=== PATIENT | male | born 1970 | race Caucasian/White ===

== ENCOUNTER 2018-01-11 22:56 | Inpatient (IN) ==
[2018-01-11 23:42] LABS: Bilirubin,Urine Negative (Negative); Blood,Urine Negative (Negative); Clarity,Urine Clear (Clear); Color,Urine Yellow (Yellow); Glucose,Urine (UA) Normal (Normal); Ketones,Urine Trace mg/dL (Negative); Leukocyte Esterase,Urine Negative (Negative); Nitrite,Urine Negative (Negative); Protein,Urine Trace mg/dL (Neg-Trace); Specific Gravity,Urine 1.026 (1.010-1.025); Urobilinogen,Urine Normal (Normal)
[2018-01-11 23:46] LABS: Bacteria,Urine None Seen per hpf (None-Few); Hyaline Casts,Urine None Seen per lpf (None-Few); Squamous Epithelial Cell,Urine Many per lpf (None-Few); WBC,Urine 0-3 per hpf (0-3)
[2018-01-12 00:25] LABS: Basophils % 0.3 %; Eosinophils % 0.3 %; Hematocrit 45.1 % (37.5-50.1); Hemoglobin 15.5 g/dL (12.9-16.9); Immature Granulocytes % 0.5 % (0-4); Lymphocytes # 1.7 K/mcL (0.6-4.6); Mean Corpuscular HGB Conc 34.4 g/dL (31.6-35.5); Mean Corpuscular Hemoglobin 29.6 pg (28.0-33.3); Mean Corpuscular Volume 86.2 fL (83.0-100.0); Mean Platelet Volume 9.5 fL (9.4-12.4); Monocytes # 0.8 K/mcL (0.0-1.3); Neutrophils # 11.2 K/mcL (1.6-8.9); Platelet Count 216 K/mcL (140-400); Red Blood Count 5.23 M/mcL (4.19-5.50); Red Cell Distribution Width 12.4 % (11.5-14.5); Segmented Neutrophils % 80.9 %
[2018-01-12 00:48] LABS: Alanine Aminotransferase 12 Units/L (7-52); Albumin 4.8 g/dL (3.5-5.7); Albumin/Globulin Ratio 1.5 (1.1-2.2); Alkaline Phosphatase 62 Units/L (34-104); Aspartate Amino Transferase 14 Units/L (13-39); BUN/Creatinine Ratio 16 (6-26); Bilirubin,Indirect 0.6 mg/dL (0.0-1.2); Bilirubin,Total 0.6 mg/dL (0.3-1.0); Blood Urea Nitrogen 14 mg/dL (6-20); Carbon Dioxide 25 mEq/L (23-29); Chloride 103 mEq/L (98-107); Globulin 3.1 g/dL (2.4-3.5); Glucose 115 mg/dL (70-105); Lipase 9 Units/L (11-82); Osmolality,Calculated 281 (280-300); Sodium 135 mEq/L (136-145); Total Protein 7.9 g/dL (6.4-8.9); eGFR For African Americans > 60 (> 60); eGFR For Non-African Americans > 60 (> 60)
--- NOTE | 2018-01-12 02:01 | Emergency Department Note ---
Disposition Clinical Impression: Acute appendicitis Qualifiers: Acute appendicitis type: unspecified acute appendicitis type Qualified Code(s) : K35.80 - Unspecified acute appendicitis Disposition: Admitted As Inpatient Condition: Fair Time of Disposition: 04:39 Abdominal Pain HPI - General Chief Complaint: ED Abdominal Pain Stated Complaint: RLQ Pain Time Seen by Provider: 01/12/18 01:43 Source: patient Mode of arrival: ambulatory Limitations: no limitations Nursing Notes Reviewed: Yes Vital Signs Reviewed: Yes - History of Present Illness HPI Narrative: 47-year-old [facility] male presents to the emergency department with right lower quadrant pain said no previous abdominal surgeries. Said this pain started all of a sudden yesterday around 5 or 6 PM and is located only in the right lower quadrant nonradiating. He said it is a 3 out of 10 dull ache. Nonradiating. He did have a fever. And they were taking ibuprofen which did control it. Patient said the food has not been sounding that he did last either proximally 6 PM tonight just very little amount of soup. There has been no nausea or vomiting with this. He has never had pain like this before. Is having no testicular pain or any changes with urination or pain with urination. Patient otherwise having no complaints including no headaches, blurry vision, neck pain , back pain, fever, chills, nausea, vomiting, chest pain, shortness of breath, peritoneal and on the arms or legs, pain with urination, change in bowel movements. Pain Scale: 5 - Related Data Allergies Allergy/AdvReac Type Severity Reaction Status Date / Time No Known Allergies Allergy Verified 01/11/18 23:17 Review of Systems: 10 point review of systems done and negative unless otherwise stated in the history of present illness. All systems ED: reviewed and negative except as stated. Review of Systems: As Per HPI Abdominal Pain PMH - Past Medical History Medical history: Reports: hypertension Male Surgical History: Reports: no surgical history - Social History Smoking status: Never smoker Alcohol use: Reports: none Drug use: Reports: none Physical Exam - General Limitations: no limitations General appearance: alert, in no apparent distress - Head Head exam: atraumatic, normocephalic, normal inspection - Eye Eye exam: Present: normal appearance, PERRL, EOMI - ENT ENT exam: normal exam, normal oropharynx, mucous membranes moist - Neck Neck exam: Present: normal inspection, full ROM, trachea midline - Chest Chest inspection: Present: normal inspection, symmetric chest wall rise - Respiratory Respiratory exam: Present: normal lung sounds bilaterally - Cardiovascular Cardiovascular exam: Present: regular rate, normal rhythm, normal heart sounds - Abdominal Exam Abdominal exam: Present: soft, tenderness (Right lower quadrant), normal bowel sounds, tenderness at McBurney's Point. Absent: distention, guarding, rebound, rigidity, psoas sign, obturator sign, heel tap sign, Lynch's sign, Rovsing's sign Abdominal tenderness: Present: RLQ, mild - Extremities Exam Extremities exam: Present: normal inspection, full ROM - Expanded Lower Extremity Exam Neurovascular/Tendon exam: Present: normal capillary refill, pulse deficit. Absent: motor deficit, sensory deficit, tendon deficit - Back Exam Back exam: Present: normal inspection, full ROM. Absent: tenderness, CVA tenderness (R), CVA tenderness (L) - Neurological Exam Neurological exam: Present: alert, oriented X3 - Skin Skin exam: Present: warm, dry, intact, normal color Course Course Narrative: 47-year-old male presenting to the emergency department complaining of right lower quadrant pain. We will place an IV and do IV contrast CT of his abdomen and pelvis. Will also get basic labs including CBC and CMP and lipase. Patient is on a pain medication this time. Disposition pending results. Vital Signs Temperature 99.6 F 01/11/18 23:15 Pulse Rate 105 01/11/18 23:15 Respiratory Rate 20 01/11/18 23:15 Blood Pressure 139/87 01/11/18 23:15 O2 Sat by Pulse Oximetry 97 01/11/18 23:15 Temperature 99.2 F 01/12/18 04:02 Pulse Rate 110 01/12/18 04:02 Respiratory Rate 16 01/12/18 04:02 Blood Pressure 135/97 01/12/18 04:02 O2 Sat by Pulse Oximetry 96 01/12/18 04:02 Oxygen Delivery Oxygen Delivery Room Air Abdominal Pain - MDM Narrative Medical decision making narrative: 39-year-old male presenting to the emergency department with right lower quadrant pain CT abdomen and pelvis with contrast did show acute appendicitis with no perforation. Labs did show leukocytosis otherwise were normal. I spoke with the on-call surgeon, Dr. Kaiser who agreed to admit the patient to their service. Patient was not wanting pain medication while he is here. He did have one episode where he was nauseous so we did give him Zofran which did help with that. Patient otherwise having no complaints. He is admitted to the surgical service in stable condition. Abdomen/Pelvis CT 01/12/18 02:02 IMPRESSION: Acute appendicitis. No findings to suggest rupture. D/ / Lv Palumbo MD / Lv Palumbo MD Interpreting Provider: Lv Palumbo MD - Medical Records Medical records reviewed: Yes I reviewed the patient's medical records. - Lab Data Lab results reviewed: Yes I reviewed the patient's lab results. Result diagrams: 01/12/18 00:11 01/12/18 00:11 Lab Results 01/11/18 01/12/18 01/12/18 Range/Units 23:22 00:11 00:11 WBC 13.8 H (4.3-11.1) K/mcL RBC 5.23 (4.19-5.50) M/mcL Hgb 15.5 (12.9-16.9) g/dL Hct 45.1 (37.5-50.1) % MCV 86.2 (83.0-100.0) fL MCH 29.6 (28.0-33.3) pg MCHC 34.4 (31.6-35.5) g/dL RDW 12.4 (11.5-14.5) % Plt Count 216 (140-400) K/mcL MPV 9.5 (9.4-12.4) fL Immature Gran % 0.5 (0-4) % Seg Neutrophils % 80.9 % Lymphocytes % 12.0 % Monocytes % 6.0 % Eosinophils % 0.3 % Basophils % 0.3 % Neutrophils # 11.2 H (1.6-8.9) K/mcL Lymphocytes # 1.7 (0.6-4.6) K/mcL Monocytes # 0.8 (0.0-1.3) K/mcL Eosinophils # 0.0 (0.0-0.6) K/mcL Basophils # 0.0 (0.0-0.2) K/mcL Sodium 135 L (136-145) mEq/L Potassium 4.0 (3.5-5.1) mEq/L Chloride 103 (98-107) mEq/L Carbon Dioxide 25 (23-29) mEq/L BUN 14 (6-20) mg/dL Creatinine 0.86 (0.70-1.30) mg/dL Est GFR ( Amer) > 60 (> 60) Est GFR (Non-Af Amer) > 60 (> 60) BUN/Creatinine Ratio 16 (6-26) Glucose 115 H (70-105) mg/dL Calculated Osmolality 281 (280-300) Calcium 10.0 (8.6-10.3) mg/dL Total Bilirubin 0.6 (0.3-1.0) mg/dL Direct Bilirubin 0.0 (0.0-0.2) mg/dL Indirect Bilirubin 0.6 (0.0-1.2) mg/dL AST 14 (13-39) Units/L ALT 12 (7-52) Units/L Alkaline Phosphatase 62 (34-104) Units/L Serum Total Protein 7.9 (6.4-8.9) g/dL Albumin 4.8 (3.5-5.7) g/dL Globulin 3.1 (2.4-3.5) g/dL Albumin/Globulin Ratio 1.5 (1.1-2.2) Lipase 9 L (11-82) Units/L Urine Color Yellow (Yellow) Urine Clarity Clear (Clear) Urine pH 6.0 (5.0-8.0) pH Units Ur Specific [place] 1.026 H (1.010-1.025) Urine Protein Trace (Neg-Trace) mg/dL Urine Glucose (UA) Normal (Normal) mg/dL Urine Ketones Trace H (Negative) mg/dL Urine Blood Negative (Negative) Urine Nitrite Negative (Negative) Urine Bilirubin Negative (Negative) Urine Urobilinogen Normal (Normal) mg/dL Ur Leukocyte Esterase Negative (Negative) Urine Microscopic RBC 3-5 H (0-3) per hpf Urine Microscopic WBC 0-3 (0-3) per hpf Ur Squamous Epith Cells Many H (None-Few) per lpf Urine Bacteria None Seen (None-Few) per hpf Hyaline Casts None Seen (None-Few) per lpf - Radiology Data Radiology results reviewed: Yes I reviewed the patient's radiology results.
--- NOTE | 2018-01-12 02:20 | Emergency Department Note ---
START Narrative - START START: I examined this patient and my medical decision-making was reviewed with the Resident Physician. I agree with the documented findings, disposition and treatment plan as described except to the extent set forth below. 47 year old male present t [facility] eD who is [facility] and states that he is having RLQ pain that started a day or so ago and that is has associated with nausea and is tachycardiac at 105 and is concerning for appenidicits. We will do ABCT and labs and rule out appendicitis vs. other intraabdominal pathology such as kidney stones.
[2018-01-12] MEDS ORDERED: Ondansetron 4 MG/2 ML VIAL IVP ONE (04:17)
[2018-01-12] MEDS ORDERED: Piperacillin/Tazobactam 3.375 GM in Water for inj. (sterile) 20 ML 20 ML IVPB ONE (04:41)
[2018-01-12] MEDS ORDERED: D5% in Lactated Ringers 1,000 ML IVC SCH (04:45)
[2018-01-12] MEDS ORDERED: *HR* FentaNYL (PF) 100 MCG/2 ML VIAL IVP PRN ×2 (06:17→08:41)
[2018-01-12] MEDS ORDERED: D5% in 0.9% NACL 1,000 ML IVC SCH (06:30)
--- NOTE | 2018-01-12 07:30 | General Surg History&Physical ---
<Ana Vernon - Last Filed: 01/12/18 08:14> Date of Encounter: 01/12/18 Time of Encounter: 07:29 Assessment and Plan (1) Acute appendicitis Current Visit: Yes Status: Acute The assessment and plan as outlined above was discussed with the patient and/or family members who expressed understanding and agreement. All questions were answered. History, exam, and clinical course consistent with acute appendicitis. There is no evidence of perforation on his CT. We will plan for surgical intervention of laparoscopic appendectomy possible open in the next 24 to 48 hours. Recommendations, risks, benefits, and surgical procedure have been reviewed in-depth with the patient by this REAL ESTATE LISTING CONSULTANT and Dr. Kaiser with the patient and his , and the patient is agreeable to proceed. Signed consent is on the hard chart. Plan -surgical intervention as above -NPO except home diltiazem this a.m. prior to 0900 -chlorhexidine shower, now -incentive spirometry -EP CDs -G.I. and DVT prophylaxis -supportive care and discomfort management Qualifiers: Acute appendicitis type: with localized peritonitis Qualified Code(s): K35.3 - Acute appendicitis with localized peritonitis (2) Essential hypertension with goal blood pressure less than 130/80 Current Visit: Yes Status: Chronic The assessment and plan as outlined above was discussed with the patient and/or family members who expressed understanding and agreement. All questions were answered. Take home diltiazem now. PRN IV Lopressor thereafter for blood pressure greater than 150 or heart rate greater than 130. (3) Hyperlipidemia Current Visit: No Status: Chronic The assessment and plan as outlined above was discussed with the patient and/or family members who expressed understanding and agreement. All questions were answered. Qualifiers: Hyperlipidemia type: unspecified Qualified Code(s): E78.5 - Hyperlipidemia , unspecified (4) DVT prophylaxis Current Visit: Yes Status: Acute The assessment and plan as outlined above was discussed with the patient and/or family members who expressed understanding and agreement. All questions were answered. History of Present Illness Chief complaint: RLQ pain HPI: Mr. Guillen is a 47 year old male with a past medical history of controlled hypertension and hyperlipidemia. He denies any past surgical history. He denies tobacco use, alcohol use, or any illicit drugs. He denies any family history of colon cancers. 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 He denies chest pain or shortness of breath associated. He has never had any cardiovascular testing. He presented on 01/11/2018 following a three-day history of generalized malaise that started on Thursday. On Thursday he said he felt continued feelings of generally ill but was unable to pinpoint any sickness. On Thursday morning he was a weekend with right lower quadrant pain that he reported as sharp, 7 out of 10, and became stabbing pain if he moved. The right lower quadrant pain has not radiated or migrated. He reports that activity worsens the discomfort. Alleviating factors include Tylenol and lying still. He endorses fevers at home with the Tmax of 100F orally, chills, and one episode of vomiting this a.m. approximately 4 AM. He denies headache, dizziness, generalized weakness, syncope, near syncope, chest pain, shortness of breath, urinary signs or symptoms, changes in bowel habits, constipation, diarrhea, or evidence of bleeding in the stool. His hospital course thus far has included laboratory studies which note in increased white blood cell count at 13.8, a CT of the abdomen and pelvis with IV and no oral contrast reveals dilated and thickened appendix with adjacent inflammatory stranding, no focal fluid collection is visualized, this is consistent with acute appendicitis. He has been started on Zosyn 3.375 g and has received one dose. He has had nothing to eat or drink since arrival to the hospital. Past Med Surg Social Fam HX - Past Medical History Source: patient Medical history: hyperlipidemia, hypertension - Past Surgical History Surgical History: no surgical history - Social History Smoking Status: Never smoker Smokeless Tobacco Status: No Alcohol use: none Drug use: none Occupational status: employed Current living situation: Home - Independent Activity Level: Independent ambulation Medications and Allergies Diltiazem CD (24hr) [Cardizem CD] 180 mg PO DAILY 01/12/18 [History] 3 Allergy/AdvReac Type Severity Reaction Status Date / Time No Known Allergies Allergy Verified 01/12/18 08:22 Review of Systems All systems PM: reviewed and no additional remarkable complaints except as stated All systems PM: The remainder of the systems were reviewed and are negative General Surgery Exam Initial Vital Signs Temp Pulse Resp BP Pulse Ox 99.6 F 105 20 139/87 97 01/11/18 23:15 01/11/18 23:15 01/11/18 23:15 01/11/18 23:15 01/11/18 23:15 VITAL SIGNS: Reviewed. See [facility] GENERAL: In no apparent distress. HEENT: Normocephalic, atraumatic, pupils are equal and reactive, extraocular motions intact, oropharynx is pink and moist, there is no neck adenopathy or JVD noted. CHEST/RESPIRATORY: The thorax is free from signs of trauma. Lung sounds: clear to auscultation, normal respiratory effort CARDIAC: tachycardic and with regular rhythm. Normal S1 and S2, without murmurs , gallops, or rubs. VASCULAR: No Edema. 2+ peripheral pulses. ABDOMEN: soft, bowel sounds present but hypoactive, tender to light palpation in the right lower quadrant consistent with positive McBurney point sign. Tender in the left lower quadrant with deep palpation resulting in referred pain to the right consistent with peritoneal irritation. Negative obturator. MUSCULOSKELETAL: Good range of motion of all major joints. Extremities without clubbing, cyanosis or edema. NEUROLOGIC EXAM: Alert and oriented x 3. Speech normal. Follows commands. PSYCHIATRIC: Mood normal. SKIN: No rash or lesions. Results - Labs 01/12/18 00:11 01/12/18 00:11 Abnormal lab results WBC 13.8 K/mcL (4.3-11.1) H 01/12/18 00:11 Neutrophils # 11.2 K/mcL (1.6-8.9) H 01/12/18 00:11 Sodium 135 mEq/L (136-145) L 01/12/18 00:11 Glucose 115 mg/dL (70-105) H 01/12/18 00:11 POC Glucose 140 (58-89) H 01/12/18 05:01 Lipase 9 Units/L (11-82) L 01/12/18 00:11 Ur Specific [place] 1.026 (1.010-1.025) H 01/11/18 23:22 Urine Ketones Trace mg/dL (Negative) H 01/11/18 23:22 Urine Microscopic RBC 3-5 per hpf (0-3) H 01/11/18 23:22 Ur Squamous Epith Cells Many per lpf (None-Few) H 01/11/18 23:22 All other labs normal. - Imaging CT scan - abdomen: report reviewed CT scan - pelvis: report reviewed <Kin Kaiser - Last Filed: 01/12/18 09:52> Date of Encounter: 01/12/18 History of Present Illness HPI: Mr. Guillen is a 47 year old male Review of Systems All systems PM: The remainder of the systems were reviewed and are negative General Surgery Exam Initial Vital Signs Temp Pulse Resp BP Pulse Ox 99.6 F 105 20 139/87 97 01/11/18 23:15 01/11/18 23:15 01/11/18 23:15 01/11/18 23:15 01/11/18 23:15 Results - Labs 01/12/18 00:11 01/12/18 00:11 Abnormal lab results WBC 13.8 K/mcL (4.3-11.1) H 01/12/18 00:11 Neutrophils # 11.2 K/mcL (1.6-8.9) H 01/12/18 00:11 Sodium 135 mEq/L (136-145) L 01/12/18 00:11 Glucose 115 mg/dL (70-105) H 01/12/18 00:11 POC Glucose 124 (58-89) H 01/12/18 08:19 Lipase 9 Units/L (11-82) L 01/12/18 00:11 Ur Specific [place] 1.026 (1.010-1.025) H 01/11/18 23:22 Urine Ketones Trace mg/dL (Negative) H 01/11/18 23:22 Urine Microscopic RBC 3-5 per hpf (0-3) H 01/11/18 23:22 Ur Squamous Epith Cells Many per lpf (None-Few) H 01/11/18 23:22 All other labs normal. - Attending Attestation I have personally seen and examined the patient. I have reviewed pertinent labs , imaging, progress notes, including this one. I agree with the above assessment and plan and wish to include the following... 47M with acute appendicitis; plan for OR today; abx, IVF, NPO until then
[2018-01-12] MEDS ORDERED: Naloxone 0.4 MG/ML INJ IVP PRN ×3 (08:18→21:24)
[2018-01-12] MEDS ORDERED: OXYCODONE Oral CONC 10 MG/0.5 ML ORAL.SYG SL PRN ×2 (08:18→08:28)
[2018-01-12] MEDS ORDERED: Ondansetron 4 MG/2 ML VIAL IVP PRN ×3 (08:18→21:24)
[2018-01-12] MEDS ORDERED: Ketorolac 15 MG/ML VIAL IVP PRN ×2 (08:18→08:41)
[2018-01-12] MEDS ORDERED: *HR* Metoprolol 5 MG/5 ML VIAL IVP PRN ×3 (08:18→21:24)
[2018-01-12] MEDS ORDERED: Acetaminophen IV 1,000 MG/100 ML INFUS..BTL IVPB ONE ×2 (08:18→08:28)
[2018-01-12] MEDS ORDERED: *HR* Promethazine 25 MG/ML VIAL IVP PRN ×5 (08:18→21:24)
[2018-01-12] MEDS ORDERED: Diltiazem CD (24hr) 180 MG CAPSULE PO STA (08:28)
[2018-01-12] MEDS ORDERED: Ringers Solution, Lactated 1,000 ML IVC SCH (08:30)
[2018-01-12] MEDS ORDERED: Pantoprazole 40 MG VIAL IVP SCH ×2 (09:00)
[2018-01-12] MEDS: Ringers Solution, Lactated 1,000 ML IVC SCH ×2 (09:49→22:12)
--- NOTE | 2018-01-12 11:32 | Discharge Summary ---
Date of Encounter: 01/12/18 Time of Encounter: 11:43 - Discharge Diagnosis (1) Acute appendicitis Priority: Primary Status: Acute Qualifiers: Acute appendicitis type: with localized peritonitis Qualified Code(s): K35.3 - Acute appendicitis with localized peritonitis (2) Essential hypertension with goal blood pressure less than 130/80 Priority: Secondary Status: Chronic (3) Hyperlipidemia Priority: Secondary Status: Chronic Qualifiers: Hyperlipidemia type: unspecified Qualified Code(s): E78.5 - Hyperlipidemia , unspecified (4) DVT prophylaxis Priority: Secondary Status: Acute General Surgery Exam Initial Vital Signs Temp Pulse Resp BP Pulse Ox 99.6 F 105 20 139/87 97 01/11/18 23:15 01/11/18 23:15 01/11/18 23:15 01/11/18 23:15 01/11/18 23:15 - Hospital Course Hospital course: Mr. Guillen is a 47 year old male who presented on 01/11/2018 following a three- day history of generalized malaise, right lower quadrant pain, fever, and one episode of vomiting. His assessment, exam, and hospital course were consistent with acute appendicitis. He was started on IV Zosyn and taken to the operating room on 01/13/2108 where he underwent an uncomplicated laparoscopic appendectomy. He is ambulating and voiding without difficulty, vital signs are stable, tolerating liquids without nausea or vomiting, and his abdominal discomfort is well controlled. We will begin discharge planning to home with a follow-up in the office in approximately 2 weeks. - Time Spent with Patient Total time spent providing and/or coordinating discharge services: - Discharge Medications Prescriptions: OxyCODONE/APAP 5/325 [Percocet 5/325 MG] 1 each PO Q6HR PRN 7 Days #28 tablet PRN Reason: Pain Docusate Sodium [Colace] 100 mg PO BID PRN #30 capsule PRN Reason: Constipation Ibuprofen [Motrin] 600 mg PO TID PRN #30 tab PRN Reason: Mild Pain Home Medications: Diltiazem CD (24hr) [Cardizem CD] 180 mg PO DAILY 01/12/18 [History] Docusate Sodium [Colace] 100 mg PO BID PRN #30 capsule 01/12/18 [Rx] Ibuprofen [Motrin] 600 mg PO TID PRN #30 tab 01/12/18 [Rx] OxyCODONE/APAP 5/325 [Percocet 5/325 MG] 1 each PO Q6HR PRN 7 Days #28 tablet [Rx] Allergies/Adverse Reactions: 3 Allergy/AdvReac Type Severity Reaction Status Date / Time No Known Allergies Allergy Verified 01/12/18 08:22 Date of admission: 01/12/18 04:17 Primary care physician: Odilia Carney MD Discharging clinician: Kin Kaiser (Primitivo Vernon) Anticipated date of discharge: 01/12/18 Labs on day of discharge: Labs from last 24 hours 01/12/18 01/12/18 08:19 05:01 POC Glucose 124 H 140 H - Patient Status Disposition: Home, Self-Care Condition: Fair Functional capacity at discharge: independent ambulation Overall status at discharge: patient is progressing back to baseline - Discharge Instructions Instructions: Laparoscopic Appendectomy (DC) Follow Up With: Odilia Carney MD [Primary Care Provider] - Ana Vernon CNP [Advanced Practice Nurse] - 01/26/18 1:40 pm Additional Instructions: General Surgical Discharge Instructions 1. No pushing, pulling, or lifting greater than 15 lbs for 4 weeks (depending upon procedure). 2. You may shower beginning today, but no tub baths, soaking, or swimming for 2 weeks. 3. You may resume driving when you are off narcotics and are safe to react in a car. 4. Take ibuprofen every 8 hours for discomfort. If this does not relieve discomfort, you may take the as needed Percocet. Take narcotics as directed. Do not take more narcotics then directed and do not share your narcotics with any other person. Do not drink alcohol while on narcotics. 5. Take stool softeners (Colace) or a water based laxative (Miralax) while taking narcotics. You may hold for loose stools. 6. Report any fevers greater than 100.5F, increase abdominal discomfort, drainage that looks like pus, increased redness or pain at the surgical site, or any vomiting. 7. Report any pain in the calves, shortness of breath, or rapid heartbeat. 8. Follow-up in the office as directed. 9. If you were prescribed antibiotics, do not stop them without talking to your provider. - Diet and Activity Activity: increase activity as tolerated Diet: advance to your usual diet
[2018-01-12] MEDS ORDERED: Piperacillin/Tazobactam 3.375 GM in 0.9 % Sodium Chloride Mini Bag 100 ML IVPB SCH (12:00)
--- NOTE | 2018-01-12 14:05 | Anesthesia Evaluation PreOp ---
Date of Encounter: 01/12/18 Time of Encounter: 14:02 - Past History Planned Operation: Lap. Appy Cardiac History: HTN, Hyperlipidemia Pulmonary History: Denies Any Significant HX CONTINUITY COORDINATOR History: Denies Any Significant HX Other Medical History: Denies Any Significant HX Anesthesia History: No Prior Anesthetic Complications, Past Anesthesia (Dental Sx) Alcohol Use: none Drug use: none Medications and Allergies Diltiazem CD (24hr) [Cardizem CD] 180 mg PO DAILY 01/12/18 [History] Docusate Sodium [Colace] 100 mg PO BID PRN #30 capsule 01/12/18 [Rx] Ibuprofen [Motrin] 600 mg PO TID PRN #30 tab 01/12/18 [Rx] OxyCODONE/APAP 5/325 [Percocet 5/325 MG] 1 each PO Q6HR PRN 7 Days #28 tablet [Rx] 3 Allergy/AdvReac Type Severity Reaction Status Date / Time No Known Allergies Allergy Verified 01/12/18 08:22 - Meds/Allergy Pre-op Review Medications Reviewed: Yes Allergies Reviewed: Yes Beta Blockers on Current Med List: No Anesthesia Results - Labs 01/12/18 00:11 01/12/18 00:11 Anesthesia Exam Vital Signs/O2 Sat, Most Current Temp Pulse Resp BP Pulse Ox 97.6 F 98 16 130/90 98 01/12/18 06:10 01/12/18 06:10 01/12/18 06:10 01/12/18 09:50 01/12/18 08:00 NPO (# of Hours): > 8 Hrs Pain Scale: 0 Pain Scale Used: Numeric (1 - 10) - HEENT Pupil (Motor): Pupils equal, EOMI Mallampati: II Teeth: Normal Oral Opening: Greater than 3 - CONTINUITY COORDINATOR LOC: Oriented CONTINUITY COORDINATOR Motor: Normal RUE, Normal LUE, Normal RLE, Normal LLE, Normal Face CONTINUITY COORDINATOR Sensory: Normal: RUE, LUE, RLE, LLE, Face - Cardiac Rhythm: Regular Murmur: None JVD: No Carotid Bruit: No - Pulmonary Breath Sounds: bilateral Clear Respiratory Effort: Symmetrical Anesthesia Assess/Plan ASA Score: 2 Modified Félix Scale for Level of Consciousness: Cooperative, oriented, and tranquil Anesthetic Plan: General Autologous Blood: Yes Monitoring Plan: Standard Monitors Recovery Plan: PACU
[2018-01-12] MEDS: Piperacillin/Tazobactam 3.375 GM in 0.9 % Sodium Chloride Mini Bag 100 ML IVPB SCH ×2 (14:11→22:12)
[2018-01-12] MEDS ORDERED: *HR* FentaNYL (PF) 100 MCG/2 ML VIAL ONE ×3 (15:50→18:05)
[2018-01-12] MEDS ORDERED: *HR* Propofol 200 MG/20 ML VIAL IVP ONE (15:50)
[2018-01-12] MEDS ORDERED: *HR* Midazolam HCl 2 MG/2 ML VIAL ONE (15:50)
[2018-01-12] MEDS ORDERED: Lidocaine -MPF 2% 2 ML VIAL ONE (15:52)
[2018-01-12] MEDS ORDERED: *HR* Rocuronium Bromide 50 MG/5 ML VIAL ONE ×2 (15:52→18:56)
[2018-01-12] MEDS ORDERED: Dexamethasone 4 MG/ML VIAL ONE (16:47)
[2018-01-12] MEDS ORDERED: Neostigmine Methylsulfate 3 MG/3 ML SYRINGE ONE (16:47)
[2018-01-12] MEDS ORDERED: Ondansetron 4 MG/2 ML VIAL ONE (16:47)
[2018-01-12] MEDS ORDERED: MORPHINE SUL Oral CONC 10 MG/0.5 ML ORAL.SYG SL PRN (16:59)
[2018-01-12] MEDS ORDERED: *HR* OxyCODONE Immed Rel 5 MG TABLET PO PRN (16:59)
[2018-01-12] MEDS ORDERED: Bupivacaine/Clonidine Syringe 1 EACH SYRINGE ONE (18:39)
--- NOTE | 2018-01-12 20:22 | Anesthesia Procedures ---
Date of Encounter: 01/12/18 Time of Encounter: 19:49 Procedures: Anesthesia - Nerve Block Procedure Date: 01/12/18 Time: 19:49 Surgical Procedure: lap appy converted to right delicia Checklist: Correct Patient Identifier, Correct procedure, History checked Blood Thinner: No Monitor Applied: BP, Pulse Oximetry Indication: Post Op Analgesia Block Type: Other (subcostal, TAP block ) Catheter placed: No Sterile Technique: Yes Ultrasound used: Yes Anatomy identified: Yes Visual spread of Local: Yes Neuro Stimulation: No Blood on Needle Aspiration: No Smooth Injection of Local: Yes Pain with Injection of Local: No Prep: Chlorhexadine Local: 0.25% Bupivicaine w/Clonidine 20 mcg/cc (40ml block solution..diluted with NS 0.9% 40ml, 80ml total given ) Volume (cc): 40 Number of Attempts: 1 Complications: None/effective block Vitals: 20ml per site, bilateral subcostal, and bilateral TAP.
[2018-01-12] MEDS: *HR* Labetalol 100 MG/20 ML MDV IVP PRN ×4 (20:26→20:42)
--- NOTE | 2018-01-12 20:53 | Anesthesia Evaluation Post Op ---
Date of Encounter: 01/12/18 Time of Encounter: 20:52 - Vital Signs Vital Signs: Vital Signs/O2 Sat, Most Current Temp Pulse Resp BP Pulse Ox 98.5 F 98 16 159/102 92 01/12/18 20:49 01/12/18 20:49 01/12/18 20:49 01/12/18 20:49 01/12/18 20:49 - Lungs Lungs: Clear Ascult./Percussion - Airway Airway: Non-obstructed - Cardiovascular Regular Rate - Mental Status Mental Status: Alert & Oriented, Answers Appropriately - Pain Pain Scale: 0 Pain Scale used: Numeric (1 - 10) - Nausea Vomiting Nausea Vomiting: Not Present - Hydration Hydration: NPO - Discharge PostOp Status: Transfer Patient to floor
[2018-01-12] MEDS: *HR* Heparin 5,000 UNIT/ML VIAL SQ SCH (22:58)
[2018-01-12] MEDS: *HR* Morphine 30 MG/ 30 ML PCA IVC PRN (23:34)
[2018-01-13] MEDS: Ringers Solution, Lactated 1,000 ML IVC SCH ×3 (03:16→11:36)
[2018-01-13] MEDS: Piperacillin/Tazobactam 3.375 GM in 0.9 % Sodium Chloride Mini Bag 100 ML IVPB SCH ×2 (03:26→11:36)
[2018-01-13] MEDS: *HR* Heparin 5,000 UNIT/ML VIAL SQ SCH ×3 (05:57→21:54)
[2018-01-13] MEDS: Pantoprazole 40 MG VIAL IVP SCH (07:50)
--- NOTE | 2018-01-13 09:21 | General Surgery Progress Note ---
<Baljit Keith - Last Filed: 01/13/18 11:58> Date of Encounter: 01/13/18 Time of Encounter: 07:45 - Assessment and Plan (1) Status post right hemicolectomy Current Visit: Yes Status: Acute POD#1 s/p lap appy converted to right hemicolectomy. Plan: -Pain control with PRINTING MACHINE OPERATOR and fentanyl patch. -NG to suction -Discontinue the Zosyn. -OOTB /ambulate. -IS usage -Await return of bowel function. -G.I. and DVT prophylaxis -Continue to monitor the patient. (2) Acute appendicitis Current Visit: Yes Status: Acute History, exam, and clinical course consistent with acute appendicitis. There is no evidence of perforation on his CT. See plan above. Qualifiers: Acute appendicitis type: with localized peritonitis Qualified Code(s): K35.3 - Acute appendicitis with localized peritonitis (3) Essential hypertension with goal blood pressure less than 130/80 Current Visit: Yes Status: Chronic Blood pressure is controlled at this time. PRN IV Lopressor for blood pressure greater than 150 or heart rate greater than 130. (4) Hyperlipidemia Current Visit: No Status: Chronic Qualifiers: Hyperlipidemia type: unspecified Qualified Code(s): E78.5 - Hyperlipidemia , unspecified (5) DVT prophylaxis Current Visit: Yes Status: Acute Subjective Patient reports: still having pain, no flatus, afebrile Narrative: The patient was seen and evaluate at bedside this morning. The patient was alert, awake, afebrile, and appears in no acute distress. The patient admits abdominal pain and tenderness near his surgical incision. He states that it is difficult to take in a deep breath because of the pain. He admits he has not been using the incentive spirometry as recommended due to the pain but will try to do it today. The patient admits she gets anxious when he is in the hospital. He denies any fevers, headaches, near syncope, chest pain, shortness of breath, difficulty breathing, diarrhea, constipation, urinary symptoms, blood in his urine, numbness and tingling, and any weaknesses. The patient has no other concerns at this time. Objective Vital Signs - Last 8 Hours Temp Pulse Resp BP Pulse Ox 01/13/18 08:27 99.3 F 107 14 121/84 92 01/13/18 07:49 92 01/13/18 05:56 99.6 F 108 16 141/84 94 01/13/18 03:44 99.7 F H 112 16 114/74 93 Intake and Output 01/12/18 01/13/18 01/13/18 23:59 07:59 15:59 Intake Total 0 / 0 Output Total 75 / 75 0 / 0 Balance -75 / -75 0 / 0 Intake: Oral 0 / 0 Output: Urine 0 / 0 0 / 0 Estimated Blood Loss 75 / 75 Gastric Drainage 0 / 0 Other: Meal NPO for breakfast Blood Glucose* 131 - General physical appearance well developed, well nourished, no distress - Eyes PERRL, normal ocular movement - ENT normal mucosa - Neck Neck exam: trachea midline - Respiratory normal expansion, normal respiratory effort, clear to auscultation - Cardiovascular Cardiovascular exam: Present: tachycardia, no murmurs/rubs/gallops - Abdomen Abdomen: Present: soft, tender (Appropriate post op tenderness near his surgical incision. No tenderness in the right lower quadrant. negative McBurney point sign.). Absent: bowel sounds present, distended, rebound, rigid - Incision Incision: Present: clean and dry, intact. Absent: draining, purulent - Integumentary no rash - Neurologic CN 2-12 grossly intact - Psychiatric oriented to time, oriented to person, oriented to place - Labs 01/12/18 00:11 01/12/18 00:11 - VTE Documentation of Mechanical Device: Intermittent pneumatic compression device Consult Discharge Plan - Plan Instructions: Laparoscopic Appendectomy (DC) Additional Instructions: General Surgical Discharge Instructions 1. No pushing, pulling, or lifting greater than 15 lbs for 4 weeks (depending upon procedure). 2. You may shower beginning today, but no tub baths, soaking, or swimming for 2 weeks. 3. You may resume driving when you are off narcotics and are safe to react in a car. 4. Take ibuprofen every 8 hours for discomfort. If this does not relieve discomfort, you may take the as needed Percocet. Take narcotics as directed. Do not take more narcotics then directed and do not share your narcotics with any other person. Do not drink alcohol while on narcotics. 5. Take stool softeners (Colace) or a water based laxative (Miralax) while taking narcotics. You may hold for loose stools. 6. Report any fevers greater than 100.5F, increase abdominal discomfort, drainage that looks like pus, increased redness or pain at the surgical site, or any vomiting. 7. Report any pain in the calves, shortness of breath, or rapid heartbeat. 8. Follow-up in the office as directed. 9. If you were prescribed antibiotics, do not stop them without talking to your provider. Referrals: Odilia Carney MD [Primary Care Provider] - Ana Vernon CNP [Advanced Practice Nurse] - 01/26/18 1:40 pm Prescriptions: OxyCODONE/APAP 5/325 [Percocet 5/325 MG] 1 each PO Q6HR PRN 7 Days #28 tablet PRN Reason: Pain Docusate Sodium [Colace] 100 mg PO BID PRN #30 capsule PRN Reason: Constipation Ibuprofen [Motrin] 600 mg PO TID PRN #30 tab PRN Reason: Mild Pain <Kin Kaiser - Last Filed: 01/13/18 12:21> Date of Encounter: 01/13/18 Objective Vital Signs - Last 8 Hours Temp Pulse Resp BP Pulse Ox 01/13/18 11:30 98.7 F 109 15 135/87 93 01/13/18 08:27 99.3 F 107 14 121/84 92 01/13/18 07:49 92 01/13/18 05:56 99.6 F 108 16 141/84 94 Intake and Output 01/12/18 01/13/18 01/13/18 23:59 07:59 15:59 Intake Total 100 / 100 1000 / 1000 Output Total 75 / 75 0 / 0 450 / 450 Balance -75 / -75 100 / 100 550 / 550 Intake: IV Fluids 100 / 100 1000 / 1000 Lactated Ringers 1,000 ML @ 125 1000 / 1000 mls/hr IVC .Q8H [facility] Rx#: [id number] Zosyn 3.375 GM In 0.9 % Sodium 100 / 100 Chloride (Mini-Bag +) 100 ML @ 25 mls/hr IVPB Q8H BETH Rx#: [id number] Oral 0 / 0 Output: Urine 0 / 0 0 / 0 Estimated Blood Loss 75 / 75 Catheter 450 / 450 Gastric Drainage 0 / 0 Other: Meal NPO for breakfast Blood Glucose* 131 120 - Labs 01/12/18 00:11 01/12/18 00:11 - Attending Attestation I have personally seen and examined the patient. I have reviewed pertinent labs , imaging, progress notes, including this one. I agree with the above assessment and plan and wish to include the following... 47M POD #1 s/p lap appy 2/2 acute appendicitis converted to lap r delicia 2/2 intraoperative finding of a cystic/mucinous lesion along the R colon; pain: cont PRINTING MACHINE OPERATOR cardiac; monitor BP/HR pulm: IS usage 10 breaths/hr while awake GI: keep NPO; if no return of bowel function by 01/15, then will begin TPN : orellana catheter inserted 2/2 urinary retention; cont to monitor UOP; will likely start flomax once Gi tract begins functioning ID: d/c abx heme: SQH TID endo: glucose <150 is the goal MSK: activity as tolerated; OOBTC FEN: change to MIVF, send for labs, replete PRN; cont NPO
[2018-01-13] MEDS ORDERED: *HR* FentaNYL PATCH 50 MCG PATCH TD SCH (12:00)
[2018-01-13] MEDS: *HR* Morphine 30 MG/ 30 ML PCA IVC PRN (13:23)
--- NOTE | 2018-01-13 13:23 | Operative Note ---
Date of procedure: 01/12/18 Pre-op diagnosis: acute appendicitis Post-op diagnosis: other (acute appendicitis, incidental finding of cystic/ mucinous lesion on right colon) Procedure: laparoscopic right hemicolectomy Complications: none Anesthesia: GETA Local Anesthetics: 0.5% Sensorcaine HCL SubQ (cc) Surgeon: Kin Kaiser Was there an physician assistant primary care present: Yes Vest Finisher: Gloria Hodges Estimated blood loss (cc): 75 Specimen: right colon, incle appendix; concerning area surrounding by black suture Condition: stable Disposition: PACU Procedure in Detail: The patient was brought into the operating room suite. The patient was placed in the supine position. Mechanical DVT prophylaxis was initiated. The patient underwent smooth induction of general endotracheal anesthesia. The patient was prepped and draped in the usual fashion. Preoperative antibiotics were given. A timeout was held identifying the correct patient, pathology, and procedure. Everyone was in agreement and we began a procedure. Incision to Mesenteric Window I started bycreating a supraumbilical incision and via open Barrientos technique entered into the abdomen. I then used a Vicryl suture on a UR 6 needle in a [id number] fashion to reapproximate but not close the fascia. I then inserted the 10 trocar followed by the camera to visualize the intraabdominal cavity. I then created a 5 mm incision suprapubically and inserted the 5 mm trocar under direct visualization. Roughly 1 handbreadth lateral to the umbilical incision I created another 5 mm incision and inserted another 5 mm trocar under direct visualization. I then inserted the nontraumatic instruments into the 5 mm ports and began the procedure. I was able to identify the tinea coli coalescing at the base of the cecum to identify the appendix. The appendix was severely inflammed and adhered to the cecum. These two structures were significantly adhered to the abdominal wall. Upon further inspection, the appendix was inflammed to the base of the cecum and the entire cecum was significantly inflammed. I was unable to fully expose the appendix and, if I were able to, I was concerned about the staple that would go across the appendix or the cecum. In addition to that, distal along the ascending colon, was what appeared to be a cysitc/mucinous mass. My concern was that this patient may have a bigger concern than acute appendicitis that I found incidentally.. I stepped out of the operating room suite to discuss with the family. The decision was made to take out the entire R colon. The family was in agreement. Dissection to Specimen Retrieval I used the electrocautery and dissected, beginning laterally, along the white line of toldt. Once I reached the hepatic flexure, I continued proximally along the transverse colon. I then had to go back towards the terminal ileum to dissect it from the abdominla wall. I was able to visualize the duodenum. In addition, I was able to retrace the R colon to the midline. I then extended the umbilical incision to retrieve the specimen. It should be stated that I had to extend the incision quite a bit to completely retrieve the right colon due to the inflammatory mass from the appendix; I then mobilized a little more of the transverse colon before finding a point after the right branch of the middle colic vessel. I elected to staple across at this point. I also stapled across proximally at the terminal ileum. Should be stated that I used the ERICK stapler, blue load to staple across the bowel. I then used the ligasure/Impact machine to ligate the mesentery until the specimen was completed resected and free. I incorporated a lot of mesentery to ensure I was able to get adequate lymph nodes. I did experience bleeding from the mesenteric vessels, but this was controlled with the ligasure. I then used the Suzanne clamps to grasp the edge of the staple line and the rubin scissors to cut off the edge and enter into the lumen both proximally and distally and used one fire of the ERICK blue load stapler to create the [id number] anastamosis. I then used the TA stapler to staple the bowel closed. I used a 3-0 vicryl as a crotch stitch. Closure I then used a looped PDS suture and, in a running fashion, closed the fascia. I then used 3-0 vicryl in an interrupted fashion to close the deep dermal layer. I then closed the skin using a 4-0 monocryl in a running subcuticular fashion. It should be stated that I did use 0.5% Marcaine as a local anesthetic. The patient tolerated the procedure well and did go back to PACU in stable condition.
[2018-01-13 13:36] LABS: BUN/Creatinine Ratio 24 (6-26); Blood Urea Nitrogen 18 mg/dL (6-20); Carbon Dioxide 27 mEq/L (23-29); Chloride 102 mEq/L (98-107); Glucose 114 mg/dL (70-105); Magnesium 1.8 mg/dL (1.6-2.6); Osmolality,Calculated 283 (280-300); Phosphorous 2.9 mg/dL (2.7-4.5); Sodium 135 mEq/L (136-145); eGFR For African Americans > 60 (> 60); eGFR For Non-African Americans > 60 (> 60)
[2018-01-13] MEDS ORDERED: Chloraseptic Spray 177 ML BOTTLE MM PRN (14:14)
[2018-01-13] MEDS: D5% in 0.45% NACL w KCl 20 MEQ/1,000 ML MLS IVC SCH (15:11)
[2018-01-14] MEDS: D5% in 0.45% NACL w KCl 20 MEQ/1,000 ML MLS IVC SCH (01:21)
[2018-01-14] MEDS: *HR* Heparin 5,000 UNIT/ML VIAL SQ SCH ×3 (05:24→21:43)
[2018-01-14] MEDS: Pantoprazole 40 MG VIAL IVP SCH (07:25)
[2018-01-14] MEDS ORDERED: Acetaminophen IV 1,000 MG/100 ML INFUS..BTL IVPB ONE (08:14)
--- NOTE | 2018-01-14 09:11 | General Surgery Progress Note ---
<Baljit Keith - Last Filed: 01/14/18 11:13> Date of Encounter: 01/14/18 Time of Encounter: 07:45 - Assessment and Plan (1) Status post right hemicolectomy Current Visit: Yes Status: Acute POD#2 s/p lap appy converted to right hemicolectomy. Plan: -Pain control with ASSISTANT PROFESSOR OF DRAMA and fentanyl patch. -Patient had a temperature of 100.1 today. Ordered IV Tylenol for fever and repeat temperature was 98.1. To further evaluate, chest xray was ordered and report states linear opacities of the bilateral lung bases are likely atelectasis. Small bilateral pleural effusions. Urine analysis is still pending. Will discontinue the Orellana catheter once UA is collected. CBC show elevated white count at 12.9 but is trending down from 13.8 on 01/12/18 and sodium at 133. Surgical incision is clean, dry and intact with Mild erythema that blanches. -Will discontinue the D5 1/2NS and start patient on D5NS at 75 mls/hr. -NG to suction but will clamp NG tube and check residuals in 4 hours. If it is less than 300 cc, plan to discontinued the NG tube. Will replete phosphate with sodium phosphate. -OOTB /ambulate. -Encourage IS usage at least 10 times per hour. -Await return of bowel function. -G.I. and DVT prophylaxis -Continue to monitor the patient. (2) Acute appendicitis Current Visit: Yes Status: Acute History, exam, and clinical course consistent with acute appendicitis. There is no evidence of perforation on his CT. See plan above. Qualifiers: Acute appendicitis type: with localized peritonitis Qualified Code(s): K35.3 - Acute appendicitis with localized peritonitis (3) Essential hypertension with goal blood pressure less than 130/80 Current Visit: Yes Status: Chronic Blood pressure is controlled at this time. PRN IV Lopressor for blood pressure greater than 150 or heart rate greater than 130. (4) Hyperlipidemia Current Visit: No Status: Chronic Qualifiers: Hyperlipidemia type: unspecified Qualified Code(s): E78.5 - Hyperlipidemia , unspecified (5) DVT prophylaxis Current Visit: Yes Status: Acute Subjective Patient reports: no new complaints, pain is less, no flatus, no bowel movement Narrative: The patient was seen and evaluated at bedside this morning. The patient was awake, alert, interactive, and had a low-grade temperature of 100.1. Patient states that his pain is less today. He admits he still has tenderness near his surgical incisions. He states that he still "feels sore in my belly and lungs. " The patient admits he has been trying to use the incentive spirometry as recommended. However, he states he uses it every 15 minutes. The patient denies any flatus, diaphoresis, and chills. The patient also denies any headaches, vision changes, new syncope, chest pain, shortness of breath, difficulty breathing, urinary symptoms, numbness and tingling, and any weaknesses. The patient has no other concerns at this time. Objective Vital Signs - Last 8 Hours Temp Pulse Resp BP Pulse Ox 01/14/18 07:31 99.1 F 114 16 142/94 91 01/14/18 05:31 100.1 F H 112 17 130/93 91 01/14/18 02:45 99.7 F H 117 17 154/93 91 Intake and Output 01/13/18 01/14/18 01/14/18 23:59 07:59 15:59 Intake Total 0 / 0 1000 / 1000 Output Total 1250 / 1250 450 / 450 Balance -1250 / -1250 550 / 550 Intake: IV Fluids 1000 / 1000 KCl 20mEq IN D5%-0.45 NACL 20 1000 / 1000 meq In 1,000 ml @ 100 mls/hr IVC .Q10H [facility] Rx#:[id number] Oral 0 / 0 0 / 0 Output: Catheter 1000 / 1000 450 / 450 Gastric Drainage 250 / 250 0 / 0 Other: Meal NPO DINNER Blood Glucose* 111 111 - General physical appearance well developed, well nourished, no distress - Eyes PERRL, normal ocular movement - ENT normal mucosa - Neck Neck exam: trachea midline - Respiratory normal expansion, normal respiratory effort - Cardiovascular Cardiovascular exam: Present: tachycardia, no murmurs/rubs/gallops - Abdomen Abdomen: Present: bowel sounds present, soft, tender (Appropriate post op tenderness near his surgical incision. Some tenderness in the right lower quadrant. negative McBurney point sign.) Hernia: none - Incision Incision: Present: clean and dry, intact, erythema. Absent: draining, purulent - Integumentary no rash - Neurologic CN 2-12 grossly intact - Psychiatric oriented to time, oriented to person, oriented to place - Labs 01/14/18 10:18 01/14/18 06:39 Diabetes panel 01/13/18 Range/Units 12:17 Sodium 135 L (136-145) mEq/L Potassium 4.0 (3.5-5.1) mEq/L Chloride 102 (98-107) mEq/L Carbon Dioxide 27 (23-29) mEq/L BUN 18 (6-20) mg/dL Creatinine 0.74 (0.70-1.30) mg/dL Glucose 114 H (70-105) mg/dL Calcium 9.0 (8.6-10.3) mg/dL Calcium panel 01/13/18 Range/Units 12:17 Calcium 9.0 (8.6-10.3) mg/dL Phosphorus 2.9 (2.7-4.5) mg/dL Pituitary panel 01/13/18 Range/Units 12:17 Sodium 135 L (136-145) mEq/L Potassium 4.0 (3.5-5.1) mEq/L Chloride 102 (98-107) mEq/L Carbon Dioxide 27 (23-29) mEq/L BUN 18 (6-20) mg/dL Creatinine 0.74 (0.70-1.30) mg/dL Glucose 114 H (70-105) mg/dL Calcium 9.0 (8.6-10.3) mg/dL Adrenal panel 01/13/18 Range/Units 12:17 Sodium 135 L (136-145) mEq/L Potassium 4.0 (3.5-5.1) mEq/L Chloride 102 (98-107) mEq/L Carbon Dioxide 27 (23-29) mEq/L BUN 18 (6-20) mg/dL Creatinine 0.74 (0.70-1.30) mg/dL Glucose 114 H (70-105) mg/dL Calcium 9.0 (8.6-10.3) mg/dL - VTE Documentation of Mechanical Device: Intermittent pneumatic compression device Consult Discharge Plan - Plan Instructions: Laparoscopic Appendectomy (DC) Additional Instructions: General Surgical Discharge Instructions 1. No pushing, pulling, or lifting greater than 15 lbs for 4 weeks (depending upon procedure). 2. You may shower beginning today, but no tub baths, soaking, or swimming for 2 weeks. 3. You may resume driving when you are off narcotics and are safe to react in a car. 4. Take ibuprofen every 8 hours for discomfort. If this does not relieve discomfort, you may take the as needed Percocet. Take narcotics as directed. Do not take more narcotics then directed and do not share your narcotics with any other person. Do not drink alcohol while on narcotics. 5. Take stool softeners (Colace) or a water based laxative (Miralax) while taking narcotics. You may hold for loose stools. 6. Report any fevers greater than 100.5F, increase abdominal discomfort, drainage that looks like pus, increased redness or pain at the surgical site, or any vomiting. 7. Report any pain in the calves, shortness of breath, or rapid heartbeat. 8. Follow-up in the office as directed. 9. If you were prescribed antibiotics, do not stop them without talking to your provider. Referrals: Odilia Carney MD [Primary Care Provider] - Ana Vernon CNP [Advanced Practice Nurse] - 01/26/18 1:40 pm <Kin Kaiser - Last Filed: 01/14/18 13:14> Date of Encounter: 01/14/18 Objective Vital Signs - Last 8 Hours Temp Pulse Resp BP Pulse Ox 01/14/18 10:05 98.1 F 109 16 137/91 96 01/14/18 07:31 99.1 F 114 16 142/94 91 01/14/18 05:31 100.1 F H 112 17 130/93 91 Intake and Output 01/13/18 01/14/18 01/14/18 23:59 07:59 15:59 Intake Total 0 / 0 1000 / 1000 0 / 0 Output Total 1250 / 1250 450 / 450 200 / 200 Balance -1250 / -1250 550 / 550 -200 / -200 Intake: IV Fluids 1000 / 1000 KCl 20mEq IN D5%-0.45 NACL 20 1000 / 1000 meq In 1,000 ml @ 100 mls/hr IVC .Q10H [facility] Rx#:[id number] Oral 0 / 0 0 / 0 0 / 0 Output: Catheter 1000 / 1000 450 / 450 200 / 200 Gastric Drainage 250 / 250 0 / 0 Other: Meal NPO DINNER NPO Percent of Meal Consumed 0% Blood Glucose* 111 111 111 - Labs 01/14/18 10:18 01/14/18 06:39 Diabetes panel 01/13/18 01/14/18 Range/Units 12:17 06:39 Sodium 135 L 133 L (136-145) mEq/L Potassium 4.0 4.1 (3.5-5.1) mEq/L Chloride 102 101 (98-107) mEq/L Carbon Dioxide 27 27 (23-29) mEq/L BUN 18 13 (6-20) mg/dL Creatinine 0.74 0.66 L (0.70-1.30) mg/dL Glucose 114 H 118 H (70-105) mg/dL Calcium 9.0 8.8 (8.6-10.3) mg/dL Calcium panel 01/13/18 01/14/18 Range/Units 12:17 06:39 Calcium 9.0 8.8 (8.6-10.3) mg/dL Phosphorus 2.9 1.9 L (2.7-4.5) mg/dL Pituitary panel 01/13/18 01/14/18 Range/Units 12:17 06:39 Sodium 135 L 133 L (136-145) mEq/L Potassium 4.0 4.1 (3.5-5.1) mEq/L Chloride 102 101 (98-107) mEq/L Carbon Dioxide 27 27 (23-29) mEq/L BUN 18 13 (6-20) mg/dL Creatinine 0.74 0.66 L (0.70-1.30) mg/dL Glucose 114 H 118 H (70-105) mg/dL Calcium 9.0 8.8 (8.6-10.3) mg/dL Adrenal panel 01/13/18 01/14/18 Range/Units 12:17 06:39 Sodium 135 L 133 L (136-145) mEq/L Potassium 4.0 4.1 (3.5-5.1) mEq/L Chloride 102 101 (98-107) mEq/L Carbon Dioxide 27 27 (23-29) mEq/L BUN 18 13 (6-20) mg/dL Creatinine 0.74 0.66 L (0.70-1.30) mg/dL Glucose 114 H 118 H (70-105) mg/dL Calcium 9.0 8.8 (8.6-10.3) mg/dL - Attending Attestation I have personally seen and examined the patient. I have reviewed pertinent labs , imaging, progress notes, including this one. I agree with the above assessment and plan and wish to include the following... 47M POD #2 sp lap right hemicolectomy; low grade fever; pain appropriate; good UOP; minimal output from NG tube cont current pain regimen IS usage NPO; clamp NG tube and check residuals after 4 hours d/c orellana replete lytes start IV ancef for erythema around incision; activity as tolerated
[2018-01-14 09:38] LABS: BUN/Creatinine Ratio 20 (6-26); Blood Urea Nitrogen 13 mg/dL (6-20); Calcium 8.8 mg/dL (8.6-10.3); Carbon Dioxide 27 mEq/L (23-29); Chloride 101 mEq/L (98-107); Glucose 118 mg/dL (70-105); Magnesium 1.9 mg/dL (1.6-2.6); Osmolality,Calculated 277 (280-300); Phosphorous 1.9 mg/dL (2.7-4.5); Potassium 4.1 mEq/L (3.5-5.1); Sodium 133 mEq/L (136-145); eGFR For African Americans > 60 (> 60); eGFR For Non-African Americans > 60 (> 60)
[2018-01-14 10:47] LABS: Basophils % 0.2 %; Eosinophils % 0.1 %; Hematocrit 39.8 % (37.5-50.1); Immature Granulocytes % 0.6 % (0-4); Lymphocytes # 0.7 K/mcL (0.6-4.6); Lymphocytes % 5.7 %; Mean Corpuscular HGB Conc 32.9 g/dL (31.6-35.5); Mean Corpuscular Hemoglobin 29.3 pg (28.0-33.3); Mean Platelet Volume 9.8 fL (9.4-12.4); Monocytes % 7.4 %; Neutrophils # 11.1 K/mcL (1.6-8.9); Platelet Count 210 K/mcL (140-400); Red Blood Count 4.47 M/mcL (4.19-5.50); Red Cell Distribution Width 12.4 % (11.5-14.5)
[2018-01-14 10:49] LABS: Hemoglobin 13.1 g/dL (12.9-16.9)
[2018-01-14] MEDS ORDERED: Piperacillin/Tazobactam 3.375 GM in D5% in Water (Mini-Bag+) 100 ML IVPB SCH (12:11)
[2018-01-14 13:00] LABS: Bilirubin,Urine Negative (Negative); Blood,Urine Large (Negative); Clarity,Urine Cloudy (Clear); Color,Urine Dark Yellow (Yellow); Glucose,Urine (UA) Normal (Normal); Ketones,Urine 15 mg/dL (Negative); Leukocyte Esterase,Urine Negative (Negative); Nitrite,Urine Negative (Negative); PH,Urine 6.5 pH Units (5.0-8.0); Protein,Urine 100 mg/dL (Neg-Trace); Specific Gravity,Urine > 1.030 (1.010-1.025); Urobilinogen,Urine Normal (Normal)
[2018-01-14 13:02] LABS: Hyaline Casts,Urine None Seen per lpf (None-Few)
[2018-01-14 13:23] LABS: RBC,Urine 30-50 per hpf (0-3)
[2018-01-14] MEDS: Ketorolac 15 MG/ML VIAL IVP SCH ×3 (13:23→23:49)
[2018-01-14] MEDS: Piperacillin/Tazobactam 3.375 GM in 0.9 % Sodium Chloride Mini Bag 100 ML IVPB SCH ×2 (13:23→21:41)
[2018-01-14 13:24] LABS: Amorphous Sediment,Urine Few (Few); Bacteria,Urine Few per hpf (None-Few); Mucus,Urine Few (Few); Squamous Epithelial Cell,Urine Few per lpf (None-Few)
[2018-01-14] MEDS: ceFAZolin 1,000 MG in Water for inj. (sterile) 20 ML 10 ML IVP SCH ×2 (17:07→23:46)
[2018-01-14] MEDS: Potassium Chloride 30 MEQ in D5% in 0.9% NACL 1,000 ML IVC SCH (21:41)
--- NOTE | 2018-01-14 22:49 | Event Note ---
Date of Encounter: 01/14/18 Time of Encounter: 22:48 low NG tube residuals; NG d/c'd; started on sips of clears; orellana d/c'd; still awaiting return of bowel function; will not advance diet until patient regains bowel function
[2018-01-15] MEDS: Piperacillin/Tazobactam 3.375 GM in 0.9 % Sodium Chloride Mini Bag 100 ML IVPB SCH (05:50)
[2018-01-15] MEDS: *HR* Heparin 5,000 UNIT/ML VIAL SQ SCH ×3 (05:50→21:38)
[2018-01-15] MEDS: Ketorolac 15 MG/ML VIAL IVP SCH ×4 (05:50→21:37)
[2018-01-15 07:07] LABS: BUN/Creatinine Ratio 27 (6-26); Blood Urea Nitrogen 18 mg/dL (6-20); Calcium 8.6 mg/dL (8.6-10.3); Carbon Dioxide 26 mEq/L (23-29); Chloride 104 mEq/L (98-107); Glucose 110 mg/dL (70-105); Magnesium 2.1 mg/dL (1.6-2.6); Osmolality,Calculated 289 (280-300); Phosphorous 2.7 mg/dL (2.7-4.5); Potassium 4.1 mEq/L (3.5-5.1); Sodium 138 mEq/L (136-145); eGFR For African Americans > 60 (> 60); eGFR For Non-African Americans > 60 (> 60)
[2018-01-15] MEDS: Potassium Chloride 30 MEQ in D5% in 0.9% NACL 1,000 ML IVC SCH ×2 (07:08→10:05)
[2018-01-15] MEDS: Pantoprazole 40 MG VIAL IVP SCH (07:52)
[2018-01-15] MEDS: ceFAZolin 1,000 MG in Water for inj. (sterile) 20 ML 10 ML IVP SCH (07:52)
[2018-01-15 07:57] LABS: Basophils % 0.2 %; Eosinophils # 0.1 K/mcL (0.0-0.6); Immature Granulocytes % 0.2 % (0-4); Lymphocytes # 0.7 K/mcL (0.6-4.6); Lymphocytes % 8.5 %; Mean Corpuscular HGB Conc 33.3 g/dL (31.6-35.5); Mean Corpuscular Hemoglobin 29.3 pg (28.0-33.3); Mean Corpuscular Volume 87.8 fL (83.0-100.0); Mean Platelet Volume 10.2 fL (9.4-12.4); Monocytes # 0.7 K/mcL (0.0-1.3); Neutrophils # 6.7 K/mcL (1.6-8.9); Platelet Count 217 K/mcL (140-400); Red Cell Distribution Width 12.4 % (11.5-14.5); Segmented Neutrophils % 82.1 %
--- NOTE | 2018-01-15 09:51 | General Surgery Progress Note ---
<Nurys Keith-Roxanna - Last Filed: 01/15/18 10:29> Date of Encounter: 01/15/18 Time of Encounter: 09:00 - Assessment and Plan (1) Status post right hemicolectomy Current Visit: Yes Status: Acute POD#3 s/p lap appy converted to right hemicolectomy. 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 Surgical incision is clean, dry and intact with Mild erythema that blanches. Discontinue IV antibiotics. Start PO Keflex 500 mg TID. -Continue D5NS at 75 mls/hr. -Start patient on clear liquid diet for breakfast and lunch. If patient tolerates clear liquid diet, plan to advance to full liquid diet for dinner. If full liquid diet is started, discontinued his IV fluids. -OOTB /ambulate. -Encourage IS usage at least 10 times per hour. -Await return of bowel function. -G.I. and DVT prophylaxis -Continue to monitor the patient. (2) Acute appendicitis Current Visit: Yes Status: Acute History, exam, and clinical course consistent with acute appendicitis. There is no evidence of perforation on his CT. See plan above. Qualifiers: Acute appendicitis type: with localized peritonitis Qualified Code(s): K35.3 - Acute appendicitis with localized peritonitis (3) Essential hypertension with goal blood pressure less than 130/80 Current Visit: Yes Status: Chronic Blood pressure is controlled at this time. PRN IV Lopressor for blood pressure greater than 150 or heart rate greater than 130. (4) Hyperlipidemia Current Visit: No Status: Chronic Qualifiers: Hyperlipidemia type: unspecified Qualified Code(s): E78.5 - Hyperlipidemia , unspecified (5) DVT prophylaxis Current Visit: Yes Status: Acute Subjective Patient reports: no new complaints, feels better, pain is less, tolerating liquids well, voiding w/o difficulty, flatus, afebrile Objective Vital Signs - Last 8 Hours Temp Pulse Resp BP Pulse Ox 01/15/18 07:09 98.3 F 93 16 127/80 95 01/15/18 03:56 98.2 F 94 16 130/86 93 Intake and Output 01/14/18 01/15/18 01/15/18 23:59 07:59 15:59 Intake Total 110 / 110 410 / 410 120 / 120 Output Total 400 / 400 Balance 110 / 110 10 / 10 120 / 120 Intake: IV Fluids 110 / 110 110 / 110 KCl 20mEq IN D5%-0.45 NACL 20 0 / 0 meq In 1,000 ml @ 100 mls/hr IVC .Q10H [facility] Rx#:[id number] Ancef 1,000 MG In Water for inj 10 . (sterile) 10 ML @ 200 mls/hr IVP Q8HR [facility] Rx#:[id number] Zosyn 3.375 GM In 0.9 % Sodium 100 / 100 100 / 100 Chloride (Mini-Bag +) 100 ML @ 25 mls/hr IVPB Q8H [facility] Rx#: [id number] Oral 300 / 300 120 / 120 Output: Urine 400 / 400 Other: Weight 94.3 kg Patient Weight 01/15/18 23:59 Weight 94.3 kg - General physical appearance well developed, well nourished, no distress - Eyes PERRL, normal ocular movement - ENT normal mucosa - Neck Neck exam: trachea midline - Respiratory normal expansion, normal respiratory effort - Cardiovascular Cardiovascular exam: Present: RRR, no murmurs/rubs/gallops - Abdomen Abdomen: Present: bowel sounds present, soft, tender (Appropriate postoperative tenderness.) - Incision Incision: Present: red, clean and dry, intact, erythema (Erythematous near the bottom of the surgical incision on the right side. Skin blanches. nontender to palpation.). Absent: draining, purulent - Integumentary no rash - Neurologic CN 2-12 grossly intact - Psychiatric oriented to time, oriented to person, oriented to place - Labs 01/15/18 06:06 01/15/18 06:06 Diabetes panel 01/15/18 Range/Units 06:06 Sodium 138 (136-145) mEq/L Potassium 4.1 (3.5-5.1) mEq/L Chloride 104 (98-107) mEq/L Carbon Dioxide 26 (23-29) mEq/L BUN 18 (6-20) mg/dL Creatinine 0.67 L (0.70-1.30) mg/dL Glucose 110 H (70-105) mg/dL Calcium 8.6 (8.6-10.3) mg/dL Calcium panel 01/15/18 Range/Units 06:06 Calcium 8.6 (8.6-10.3) mg/dL Phosphorus 2.7 (2.7-4.5) mg/dL Pituitary panel 01/15/18 Range/Units 06:06 Sodium 138 (136-145) mEq/L Potassium 4.1 (3.5-5.1) mEq/L Chloride 104 (98-107) mEq/L Carbon Dioxide 26 (23-29) mEq/L BUN 18 (6-20) mg/dL Creatinine 0.67 L (0.70-1.30) mg/dL Glucose 110 H (70-105) mg/dL Calcium 8.6 (8.6-10.3) mg/dL Adrenal panel 01/15/18 Range/Units 06:06 Sodium 138 (136-145) mEq/L Potassium 4.1 (3.5-5.1) mEq/L Chloride 104 (98-107) mEq/L Carbon Dioxide 26 (23-29) mEq/L BUN 18 (6-20) mg/dL Creatinine 0.67 L (0.70-1.30) mg/dL Glucose 110 H (70-105) mg/dL Calcium 8.6 (8.6-10.3) mg/dL - VTE Documentation of Mechanical Device: Intermittent pneumatic compression device Consult Discharge Plan - Plan Instructions: Laparoscopic Appendectomy (DC) Additional Instructions: General Surgical Discharge Instructions 1. No pushing, pulling, or lifting greater than 15 lbs for 4 weeks (depending upon procedure). 2. You may shower beginning today, but no tub baths, soaking, or swimming for 2 weeks. 3. You may resume driving when you are off narcotics and are safe to react in a car. 4. Take ibuprofen every 8 hours for discomfort. If this does not relieve discomfort, you may take the as needed Percocet. Take narcotics as directed. Do not take more narcotics then directed and do not share your narcotics with any other person. Do not drink alcohol while on narcotics. 5. Take stool softeners (Colace) or a water based laxative (Miralax) while taking narcotics. You may hold for loose stools. 6. Report any fevers greater than 100.5F, increase abdominal discomfort, drainage that looks like pus, increased redness or pain at the surgical site, or any vomiting. 7. Report any pain in the calves, shortness of breath, or rapid heartbeat. 8. Follow-up in the office as directed. 9. If you were prescribed antibiotics, do not stop them without talking to your provider. Referrals: Odilia Carney MD [Primary Care Provider] - Ana Vernon CNP [Advanced Practice Nurse] - 01/26/18 1:40 pm <Kin Kaiser - Last Filed: 01/15/18 20:37> Date of Encounter: 01/15/18 Objective Vital Signs - Last 8 Hours Temp Pulse Resp BP Pulse Ox 01/15/18 19:00 98.7 F 99 16 159/98 95 01/15/18 15:41 99.0 F 97 18 144/94 95 Intake and Output 01/15/18 01/15/18 01/15/18 07:59 15:59 23:59 Intake Total 410 / 410 1235 / 1235 360 / 360 Output Total 400 / 400 0 / 0 Balance 1235 / 1235 360 / 360 Intake: IV Fluids 110 / 110 1115 / 1115 KCl 30 MEQ In D5% And 0.9% Nacl 1015 / 1015 1000 Ml 1,000 ML @ 75 mls/hr IVC .[id number] [facility] Rx#:[id number] Ancef 1,000 MG In Water for inj . (sterile) 10 ML @ 200 mls/hr IVP Q8HR [facility] Rx#:[id number] Zosyn 3.375 GM In 0.9 % Sodium 100 / 100 100 / 100 Chloride (Mini-Bag +) 100 ML @ 25 mls/hr IVPB Q8H [facility] Rx#: [id number] Oral 300 / 300 120 / 120 360 / 360 Output: Urine 400 / 400 0 / 0 Other: Weight 94.3 kg Patient Weight 01/15/18 23:59 Weight 94.3 kg - Labs 01/15/18 06:06 01/15/18 06:06 Diabetes panel 01/15/18 Range/Units 06:06 Sodium 138 (136-145) mEq/L Potassium 4.1 (3.5-5.1) mEq/L Chloride 104 (98-107) mEq/L Carbon Dioxide 26 (23-29) mEq/L BUN 18 (6-20) mg/dL Creatinine 0.67 L (0.70-1.30) mg/dL Glucose 110 H (70-105) mg/dL Calcium 8.6 (8.6-10.3) mg/dL Calcium panel 01/15/18 Range/Units 06:06 Calcium 8.6 (8.6-10.3) mg/dL Phosphorus 2.7 (2.7-4.5) mg/dL Pituitary panel 01/15/18 Range/Units 06:06 Sodium 138 (136-145) mEq/L Potassium 4.1 (3.5-5.1) mEq/L Chloride 104 (98-107) mEq/L Carbon Dioxide 26 (23-29) mEq/L BUN 18 (6-20) mg/dL Creatinine 0.67 L (0.70-1.30) mg/dL Glucose 110 H (70-105) mg/dL Calcium 8.6 (8.6-10.3) mg/dL Adrenal panel 01/15/18 Range/Units 06:06 Sodium 138 (136-145) mEq/L Potassium 4.1 (3.5-5.1) mEq/L Chloride 104 (98-107) mEq/L Carbon Dioxide 26 (23-29) mEq/L BUN 18 (6-20) mg/dL Creatinine 0.67 L (0.70-1.30) mg/dL Glucose 110 H (70-105) mg/dL Calcium 8.6 (8.6-10.3) mg/dL - Attending Attestation I have personally seen and examined the patient. I have reviewed pertinent labs , imaging, progress notes, including this one. I agree with the above assessment and plan and wish to include the following... POD#3 s/p lap r delicia colectomy 2/2 significant acute appendicitis with necrotic appendix to the cecal base and concern for mucinous lesion; pathology was benign ; patient now has return of bowel function, pain controlled; on PO abx for erythema around incision; currently tolerating CLD; okay for FLD at dinner; if he tolerates then can advance to regular diet in AM with plans for discharge if he continues to tolerate. Discussed with patient the possibility of ileus at home, but I do expect him to continue to do well. After discharge will see patient in the clinic when I return.
[2018-01-15] MEDS: cephALEXin 500 MG CAPSULE PO SCH ×3 (12:48→21:37)
[2018-01-16] MEDS: Potassium Chloride 30 MEQ in D5% in 0.9% NACL 1,000 ML IVC SCH (04:41)
[2018-01-16] MEDS: *HR* Heparin 5,000 UNIT/ML VIAL SQ SCH (04:44)
[2018-01-16] MEDS: Ketorolac 15 MG/ML VIAL IVP SCH (04:50)
[2018-01-16 07:49] VITALS: BP 139/88
[2018-01-16] MEDS: Pantoprazole 40 MG VIAL IVP SCH (09:33)
[2018-01-16] MEDS: cephALEXin 500 MG CAPSULE PO SCH (09:34)
--- NOTE | 2018-01-16 12:22 | Discharge Summary ---
<Baljit Keith - Last Filed: 01/16/18 13:08> Date of Encounter: 01/16/18 Time of Encounter: 09:30 - Discharge Diagnosis (1) Status post right hemicolectomy Priority: Primary Status: Acute (2) Acute appendicitis Priority: Primary Status: Acute Qualifiers: Acute appendicitis type: with localized peritonitis Qualified Code(s): K35.3 - Acute appendicitis with localized peritonitis (3) Essential hypertension with goal blood pressure less than 130/80 Priority: Secondary Status: Chronic (4) Hyperlipidemia Priority: Secondary Status: Chronic Qualifiers: Hyperlipidemia type: unspecified Qualified Code(s): E78.5 - Hyperlipidemia , unspecified (5) DVT prophylaxis Priority: Secondary Status: Acute General Surgery Exam Initial Vital Signs Temp Pulse Resp BP Pulse Ox 99.6 F 105 20 139/87 97 01/11/18 23:15 01/11/18 23:15 01/11/18 23:15 01/11/18 23:15 01/11/18 23:15 - General physical appearance well developed, well nourished, no distress - Eyes PERRL, normal ocular movement - ENT normal mucosa - Neck trachea midline - Respiratory normal expansion, normal respiratory effort, clear to auscultation - Cardiovascular Cardiovascular exam: Present: RRR, no murmurs/rubs/gallops - Abdomen Abdomen general surgery: Present: bowel sounds present, soft, non tender Hernia: Present: none - Incision Incision: Present: clean and dry, intact. Absent: draining, purulent - Integumentary Integumentary general surgery: Present: warm and dry - Neurologic Present: CN 2-12 grossly intact, normal coordination, normal sensation - Musculoskeletal Present: normal gait - Psychiatric Psychiatric general surgery: Present: appropriate, oriented to person, oriented to place, oriented to time, speech is normal - Hospital Course Hospital course: Mr. Guillen is a 47 year old male with a past medical history of controlled hypertension and hyperlipidemia with no past surgical history. He presented to the ED on 01/11/2018 following a three-day history of generalized malaise. He stated that he continued feeling generally ill but was unable to pinpoint any sickness. He complained of right lower quadrant pain that he reported as sharp , 7 out of 10, and became stabbing pain if he moved. The right lower quadrant pain has not radiated or migrated. He reports that activity worsens the discomfort. Alleviating factors include Tylenol and lying still. He endorses fevers at home with the Tmax of 100F orally, chills, and one episode of vomiting this a.m. approximately 4 AM. He denies headache, dizziness, generalized weakness, syncope, near syncope, chest pain, shortness of breath, urinary signs or symptoms, changes in bowel habits, constipation, diarrhea, or evidence of bleeding in the stool. Labs in the emergency department indicated leukocytosis with a white blood count of 13.8, a CT of the abdomen and pelvis with IV and no oral contrast reveals dilated and thickened appendix with adjacent inflammatory stranding, no focal fluid collection is visualized, this is consistent with acute appendicitis. He was then started on Zosyn 3.375 g. Patient received surgical intervention on 01/13/[address] Kin Kaiser performed a right hemicolectomy and the patient tolerated procedure well and returned to the PACU in stable condition. The patient continue to clinically improving. Surgical incision is clean, dry and intact. Patient has tolerated his diet very well. Return of bowel function is noted. Patient abdomen has bowel sounds in all 4 quadrants and he is passing gas. The patient admits his pain is well controlled. The patient is instructed to follow -up in the outpatient clinic. The patient demonstrate verbal understanding. The patient has no other concerns at this time. - Time Spent with Patient Total time spent providing and/or coordinating discharge services: - Discharge Medications Prescriptions: cephALEXin [Keflex] 500 mg PO TID 5 Days #15 capsule Home Medications: Diltiazem CD (24hr) [Cardizem CD] 180 mg PO DAILY 01/12/18 [History] Docusate Sodium [Colace] 100 mg PO BID PRN #30 capsule 01/12/18 [Rx] Ibuprofen [Motrin] 600 mg PO TID PRN #30 tab 01/12/18 [Rx] OxyCODONE/APAP 5/325 [Percocet 5/325 MG] 1 each PO Q6HR PRN 7 Days #28 tablet [Rx] cephALEXin [Keflex] 500 mg PO TID 5 Days #15 capsule 01/16/18 [Rx] Allergies/Adverse Reactions: 3 Allergy/AdvReac Type Severity Reaction Status Date / Time No Known Allergies Allergy Verified 01/12/18 08:22 Date of admission: 01/13/18 11:06 Primary care physician: Odilia Carney MD Consults: 01/14/18 12:15 Consult to Respiratory Therapy [CONS] Stat Reason for Consult: Aggressive pulmonary toileting; postoperative atelectasis Time Notified: 12:16 Call Completed: No Discharging clinician: Baljit Keith Anticipated date of discharge: 01/16/18 - Impressions ITS Impressions Chest X-Ray 01/14/18 08:23 IMPRESSION: 1. Linear opacities of the bilateral lung bases are likely atelectasis. 2. Small bilateral pleural effusions. D/ / Chris Taylor MD / Chris Taylor MD Interpreting Provider: Chris Taylor MD - Patient Status Disposition: Home, Self-Care Condition: Good Functional capacity at discharge: independent ambulation Overall status at discharge: patient is progressing back to baseline - Discharge Instructions Instructions: Laparoscopic Appendectomy (DC) Follow Up With: Odilia Carney MD [Primary Care Provider] - Ana Vernon CNP [Advanced Practice Nurse] - 01/26/18 1:40 pm Additional Instructions: General Surgical Discharge Instructions 1. No pushing, pulling, or lifting greater than 15 lbs for 4 weeks (depending upon procedure). 2. You may shower beginning today, but no tub baths, soaking, or swimming for 2 weeks. 3. You may resume driving when you are off narcotics and are safe to react in a car. 4. Take ibuprofen every 8 hours for discomfort. If this does not relieve discomfort, you may take the as needed Percocet. Take narcotics as directed. Do not take more narcotics then directed and do not share your narcotics with any other person. Do not drink alcohol while on narcotics. 5. Take stool softeners (Colace) or a water based laxative (Miralax) while taking narcotics. You may hold for loose stools. 6. Report any fevers greater than 100.5F, increase abdominal discomfort, drainage that looks like pus, increased redness or pain at the surgical site, or any vomiting. 7. Report any pain in the calves, shortness of breath, or rapid heartbeat. 8. Follow-up in the office as directed. 9. If you were prescribed antibiotics, do not stop them without talking to your provider. - Diet and Activity Activity: increase activity as tolerated Diet: advance to your usual diet <Toño Reid - Last Filed: 01/17/18 12:39> Date of Encounter: 01/16/18 General Surgery Exam Initial Vital Signs Temp Pulse Resp BP Pulse Ox 99.6 F 105 20 139/87 97 01/11/18 23:15 01/11/18 23:15 01/11/18 23:15 01/11/18 23:15 01/11/18 23:15 - Hospital Course Hospital course: Mr. Guillen is a 47 year old male - Time Spent with Patient Total time spent providing and/or coordinating discharge services: Date of admission: 01/13/18 11:06 Primary care physician: Odilia Carney MD Consults: 01/14/18 12:15 Consult to Respiratory Therapy [CONS] Stat Reason for Consult: Aggressive pulmonary toileting; postoperative atelectasis Time Notified: 12:16 Call Completed: No - Impressions ITS Impressions Chest X-Ray 01/14/18 08:23 IMPRESSION: 1. Linear opacities of the bilateral lung bases are likely atelectasis. 2. Small bilateral pleural effusions. D/ / Chris Taylor MD / Chris Taylor MD Interpreting Provider: Chris Taylor MD - Attending Attestation I examined this patient and my medical decision-making was reviewed with the Resident Physician. I agree with the documented findings, disposition and treatment plan as described except to the extent set forth below. The patient is seen and evaluated on morning rounds. He is doing quite well after the ileocecal To me secondary to severe appendicitis. We will advance his diet and hopefully be able to discharge him seen. We will continue supportive care Toño Reid MD FACS
== END 2018-01-16 13:30 | disposition home or self-care (01) | DRG 330 ==
LOC: EMEROO 22:56 → 2SOUTHHOLD 22:56 → 3ANU 01-12 18:10
PROVIDERS: ADMIT Surgery; ATTEND Surgery

== ENCOUNTER 2019-07-08 08:20 | Inpatient (IN) ==
[2019-07-08] MEDS ORDERED: *HR* Propofol 200 MG/20 ML VIAL IVP ONE (08:37)
[2019-07-08] MEDS ORDERED: *HR* FentaNYL (PF) 100 MCG/2 ML VIAL ONE ×2 (08:37→11:56)
[2019-07-08] MEDS ORDERED: *HR* Midazolam HCl 2 MG/2 ML VIAL ONE (08:37)
[2019-07-08] MEDS ORDERED: Dexamethasone 4 MG/ML VIAL ONE (08:38)
[2019-07-08] MEDS ORDERED: Ondansetron 4 MG/2 ML VIAL ONE ×2 (08:38→11:57)
[2019-07-08] MEDS ORDERED: *HR* Rocuronium Bromide 50 MG/5 ML VIAL ONE ×2 (08:38→10:37)
[2019-07-08] MEDS ORDERED: Ketorolac 30 MG/ML VIAL ONE (08:42)
[2019-07-08] MEDS ORDERED: Neostigmine Methylsulfate 3 MG/3 ML SYRINGE ONE (08:42)
[2019-07-08] MEDS ORDERED: cefOXitin 2,000 MG in Water for inj. (sterile) 20 ML IVP ONE (08:49)
--- NOTE | 2019-07-08 08:58 | History & Physical Report ---
Date of Encounter: 07/08/19 Time of Encounter: 08:57 24 Hour HP Update - Instructions Instructions: If the History and Physical is less than 30 days old and was completed prior to A.M. admission and or procedure and has NOT been updated on calendar day of procedure please complete this update prior to performing procedure. - Update Patient reports changes in Medical Condition: No Changes in examination, assessment, or condition: No Changes in Medication: No Preop tests/diagnostics Reviewed: Yes Surgery Remains Indicated: Yes Consent for Planned Operative Procedure(s) Verified: Yes - Pre-Operative Checklist Preoperative Checklist Indicated: Yes Prophylactic Antibiotic Ordered: Yes Home Medications Include Beta Ashlee: No Beta Ashlee Taken Today (Day of Surgery): No Beta Ashlee Taken Yesterday (Day Prior to Surgery): No Is VTE Prophylaxis Indicated?: Yes - Attending Attestation patient seen and examined. no changes in patient health since last evaluation; okay to proceed with surgery
[2019-07-08] MEDS ORDERED: Isovue-300 50 ML VIAL ONE (09:07)
[2019-07-08] MEDS: Ringers Solution, Lactated 1,000 ML IVC SCH ×3 (09:15→16:38)
--- NOTE | 2019-07-08 09:17 | Anesthesia Evaluation PreOp ---
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: Denies Any Significant HX Other Medical History: Other (chronic cholecystitis,) Anesthesia History: No Prior Anesthetic Complications, Past Anesthesia (right hemicolectomy with appy, no cancer) Alcohol Use: none Drug use: none Medications and Allergies dilTIAZem HCl [Diltiazem 24Hr ER] 180 mg DAILY 07/08/19 [History] Allergy/AdvReac Type Severity Reaction Status Date / Time No Known Allergies Allergy Verified 01/12/18 08:22 - Meds/Allergy Pre-op Review Medications Reviewed: Yes Allergies Reviewed: Yes Beta Blockers on Current Med List: No Anesthesia Exam Selected Entries 07/08/19 09:10 Temperature 98.1 F Pulse Rate 95 Respiratory Rate 18 Blood Pressure 134/86 O2 Sat by Pulse Oximetry 99 Weight: 80kg NPO (# of Hours): 8 - HEENT Pupil (Motor): EOMI Mallampati: II Teeth: Normal Oral Opening: Less than or equal to 3 - CUSTOMER SALES SPECIALIST LOC: Oriented CUSTOMER SALES SPECIALIST Motor: Normal RUE, Normal LUE, Normal RLE, Normal LLE, Normal Face CUSTOMER SALES SPECIALIST Sensory: Normal: RUE, LUE, RLE, LLE, Face - Cardiac Rhythm: Regular Murmur: None - Pulmonary Breath Sounds: bilateral Clear Respiratory Effort: Symmetrical Anesthesia Assess/Plan ASA Score: 2 Level of consciousness: Cooperative, Oriented, Tranquil Anesthetic Plan: General Monitoring Plan: Standard Monitors Recovery Plan: PACU (agrees to GA)
[2019-07-08] MEDS ORDERED: Celecoxib 200 MG CAPSULE PO ONE (09:19)
[2019-07-08] MEDS ORDERED: traMADol 50 MG TABLET PO ONE (09:19)
[2019-07-08] MEDS ORDERED: Gabapentin 300 MG CAPSULE PO ONE (09:19)
[2019-07-08] MEDS ORDERED: *HR* Promethazine 25 MG/ML VIAL IVP PRN (09:20)
[2019-07-08] MEDS ORDERED: *HR* FentaNYL (PF) 100 MCG/2 ML VIAL IVP PRN (09:20)
[2019-07-08] MEDS ORDERED: traMADol 50 MG TABLET PO PRN ×3 (09:20→16:00)
[2019-07-08] MEDS ORDERED: *HR* OxyCODONE Immed Rel 5 MG TABLET PO PRN ×2 (09:20→15:20)
[2019-07-08] MEDS ORDERED: Ringers Solution, Lactated 1,000 ML IVC SCH ×2 (09:30→13:30)
[2019-07-08] MEDS ORDERED: CefOXitin 1,000 MG VIAL ONE (12:07)
--- NOTE | 2019-07-08 12:08 | AcuteCare Surgery Consult Note ---
Date of Encounter: 07/08/19 Time of Encounter: 12:00 History of Present Illness Consult date: 07/08/19 Reason for consult: other (Intraoperative consultation complex surgical abdomen) Requesting physician: Kin Kaiser History of present illness: I was called to evaluate the patient after open conversion from attempted robotic cholecystectomy. The patient had severe infrahepatic inflammatory changes and phlegmon involving the gallbladder. The dissection was tremendously difficult. Dr. Thurman wanted intraoperative consultation and assistance and I responded as requested The patient was stable and under general anesthetic. Subcostal incision had already been made. The upper part of the gallbladder was visible and involved in a dense chronic inflammatory process along its lateral and inferior aspects. There was already an opening in the gallbladder and the gallbladder had been decompressed. I performed a combination of blunt and sharp dissection connecting the space just lateral to the srinath hepatis with the dense inflammatory changes on the fundus of the gallbladder. These adhesions were divided with electrocautery. I dissected out the srinath hepatis the common bile duct was positively identified. The cystic artery was positively identified. Cystic duct was positively identified. I made an evaluation of the wall of the inflammatory phlegmon that had been dissected away from the gallbladder. There was some concern for bowel injury. No bowel injury was identified. At this point Dr. Thurman was comfortable completing the case and the patient was completely stable and I exited the room. Toño Reid MD FACS Past Med Surg Social Fam HX - Past Medical History Medical history: hyperlipidemia, hypertension Additional medical history: Alopecia Areata. Chronic Cholecystitis Psychiatric history: no psych history - Past Surgical History Surgical History: appendectomy Additional surgical history: Laparscopic Right Hemicolectomy. Colon Sx - Social History Smoking Status: Never smoker Smokeless Tobacco Status: No Alcohol use: none Drug use: none Medications and Allergies dilTIAZem HCl [Diltiazem 24Hr ER] 180 mg DAILY 07/08/19 [History] Allergy/AdvReac Type Severity Reaction Status Date / Time No Known Allergies Allergy Verified 01/12/18 08:22 Review of Systems All systems PM: The remainder of the systems were reviewed and are negative General Surgery Exam Initial Vital Signs Temp Pulse Resp BP Pulse Ox 98.1 F 95 18 134/86 99 07/08/19 09:10 07/08/19 09:10 07/08/19 09:10 07/08/19 09:10 07/08/19 09:10 Exam Initial Vital Signs Temp Pulse Resp BP Pulse Ox 98.1 F 95 18 134/86 99 07/08/19 09:10 07/08/19 09:10 07/08/19 09:10 07/08/19 09:10 07/08/19 09:10 Results - Labs All other labs normal. Consult Discharge Plan - Plan Referrals: Odilia Carney MD [Primary Care Provider] -
[2019-07-08] MEDS ORDERED: Ropivacaine/PF 0.5% 30 ML VIAL ONE (13:00)
[2019-07-08] MEDS ORDERED: Lidocaine/EPI 1:100k 2% 20 ML VIAL ONE (13:00)
[2019-07-08] MEDS ORDERED: Ondansetron 4 MG/2 ML VIAL IVP PRN ×2 (13:23→15:20)
[2019-07-08] MEDS ORDERED: Morphine PCA 30 MG/ 30 ML 30 ML PCA.VIAL IVC PRN (13:27)
--- NOTE | 2019-07-08 13:35 | Operative Note ---
Date of procedure: 07/08/19 Pre-op diagnosis: symptomatic cholelithiasis, umbilical hernia Post-op diagnosis: other (gangrenous perforated cholecystitis, umbilical hernia) Procedure: robotic converted to open cholecystectomy primary closure of umbilical hernia Implants: none Complications: none Anesthesia: GETA Local Anesthetics: Other (CHIVO block) Surgeon: Kin Kaiser Was there an salon assistant present: Yes Software Trainer: Toño Reid Software Trainer Other: Gloria Hodges Estimated blood loss (cc): 250 Specimen: gallbladder and contents Condition: stable Disposition: PACU Procedure in Detail: The patient was brought into the operating room suite and was placed in the supine position. Mechanical DVT prophylaxis was applied. A time-in was conduct ed. The patient underwent smooth induction of anesthesia. Preoperative antibiotics were given. The patient was prepped and draped in the usual fashion. A time-out was held identifying the correct patient, pathology, and procedure. Everyone was in agreement and we began the procedure. Incision to Dissection I started by creating a curvilinear incision due to the fact that there was an umbilical hernia. Via open Claudia technique I did enter into the abdomen. I inserted the 12mm trocar followed by the 30 degree camera, ensured that I did not cause intraabdominal injury upon entry, and quickly identified the gallbladder. There were lots of adhesions which were taken down both sharply and bluntly to clearly visualize the gallbladder. I was able to identify the gallbladder and noted that there was significant inflammation. using blunt dissection I was able to visualize the medial and anterior wall. However there was an especially inflammed area. During my dissection I violated the gallbladder wall. Due to the extent of the inflammation and concern for performing a safe operating I elected to convert to open. It was at this point that I called my senior health educator, Dr. Reid, for assistance with the dissection. I created a subcostal incision, dissected through the soft tissue layers, fascia, and finally into the abdomen. I set up the book wendy and began the procedure. Again the level of inflammation was especially severe. Using blunt dissection I was able to free more along the medial and lateral wall. I then violated the gallbladder wall at the fundus and suctioned the contents. I used my finger to identify the infundibulum. of note the gallbladder was significantly inflammed with a thickened gallbladder wall and gangrenous gallbladder. I was able to see that the duodenum was adhered to the infundibulum and using sharp dissection I was able to mobilize and move the duodenum out of the operative space. Using blunt dissection with the right angle and the electrocautery I was able to identify the cystic artery. It was clipped, two on the stay side, one of the specimen side, and transected with the metzenbaum scissors. We eventually were able to find the common bile duct and the junction with the cystic duct. I then clipped the cystic duct in the same fashion as the artery. I then used tension and counter tension with the electrocautery to excise the gallbladder off the liver bed. I excised in a top down fashion in the beginning. It was at this point that i was able to appreciate that the gallbladder perforated into the liver and created the thickened gallbladder wall. I then irrigated the liver bed with 2L of saline imed with 2g of mefoxin. I placed two 19fr trini drain in the liver bed near the cystic stump. I then closed the posterior and anterior layer with the looped PDS suture. I then closed the deep dermal layer with 3-0 vicryl in an interrupted fashion. I then closed the umbilical incision, which is where the umbilical hernia was and closed it in a figure of 8 fashion thereby primarily closing the umbilical hernia. I then stapled all skin incisions followed by the CHETNA dressing. The patient tolerated the procedure well and was escorted to pacu in stable condition.
--- NOTE | 2019-07-08 13:46 | Anesthesia Procedures ---
Date of Encounter: 07/08/19 Time of Encounter: 13:40 Procedures: Anesthesia - Nerve Block Procedure Date: 07/08/19 Time: 13:40 Allergies/Adv Reactions: nka Pre-op Diagnosis: chronic cholecystitis Surgical Procedure: open cholecystectomy Checklist: Correct Patient Identifier, Correct procedure, History checked Blood Thinner: No Monitor Applied: EKG, BP, Pulse Oximetry Supplemental Oxygen via Nasal Cannula (L/min): 4 Indication: Post Op Analgesia Pre-op Neuro Deficits: No Block Type: Other (bilateral erector spinae block) Catheter placed: No Sterile Technique: Yes Ultrasound used: Yes Anatomy identified: Yes Visual spread of Local: Yes Neuro Stimulation: No Blood on Needle Aspiration: No Smooth Injection of Local: Yes Pain with Injection of Local: No Prep: Chlorhexadine Needle: 21 x 100 mm Stimuplex Local: Ropivacaine (15ml 0.5% + 10ml 0.9 NS + 5ml 2%lido with epi + 8mg decadron (x2 bilateral)), Other Volume (cc): 64 Number of Attempts: 1 Complications: None/effective block Vitals: 133/89, 90, 97%, 16
[2019-07-08] MEDS ORDERED: Acetaminophen 325 MG TABLET PO PRN (15:20)
[2019-07-08] MEDS ORDERED: Piperacillin/Tazobactam 3.375 GM in 0.9 % Sodium Chloride Mini Bag 100 ML IVPB SCH (16:00)
[2019-07-08] MEDS: Famotidine 20 MG TABLET PO SCH (16:38)
[2019-07-08] MEDS: Piperacillin/Tazobactam 3.375 GM in 0.9 % Sodium Chloride Mini Bag 100 ML IVPB SCH (16:39)
[2019-07-08] MEDS ORDERED: Famotidine 20 MG TABLET PO SCH (21:00)
[2019-07-09] MEDS: Piperacillin/Tazobactam 3.375 GM in 0.9 % Sodium Chloride Mini Bag 100 ML IVPB SCH ×3 (00:14→17:22)
[2019-07-09] MEDS: Ringers Solution, Lactated 1,000 ML IVC SCH ×2 (03:51→14:14)
[2019-07-09] MEDS: *HR* OxyCODONE Immed Rel 5 MG TABLET PO PRN ×2 (03:54→10:10)
[2019-07-09] MEDS: *HR* Enoxaparin 40 MG/0.4 ML SYRINGE SQ SCH (05:50)
[2019-07-09] MEDS ORDERED: *HR* Enoxaparin 40 MG/0.4 ML SYRINGE SQ SCH (06:00)
[2019-07-09 09:15] LABS: Magnesium 1.9 mg/dL (1.6-2.6)
[2019-07-09] MEDS: DILTIAZEM 180 MG PO SCH (09:25)
[2019-07-09] MEDS: Famotidine 20 MG TABLET PO SCH ×2 (09:25→17:22)
[2019-07-09] MEDS: Ketorolac 15 MG/ML VIAL IVP SCH ×3 (10:51→17:22)
[2019-07-09] MEDS ORDERED: D5% in 0.45% NACL 1,000 ML IVC SCH (13:30)
[2019-07-10] MEDS: Ringers Solution, Lactated 1,000 ML IVC SCH ×3 (00:37→21:17)
[2019-07-10] MEDS: Ketorolac 15 MG/ML VIAL IVP SCH ×5 (00:37→23:36)
[2019-07-10] MEDS: Piperacillin/Tazobactam 3.375 GM in 0.9 % Sodium Chloride Mini Bag 100 ML IVPB SCH ×3 (00:38→21:16)
[2019-07-10] MEDS: *HR* Enoxaparin 40 MG/0.4 ML SYRINGE SQ SCH (05:43)
--- NOTE | 2019-07-10 07:40 | General Surgery Progress Note ---
Date of Encounter: 07/10/19 Time of Encounter: 07:38 - Assessment and Plan (1) Gangrene of gallbladder in cholecystitis Current Visit: Yes Status: Acute Patient is progressing well with normal bowel function at this point and tolerating clear liquids. We will advance his diet at this point. He is to continue ambulation and into the chair 3 times a day. If he improves today likely to give her diet tomorrow and discharge in the afternoon. Subjective Patient reports: no new complaints, feels better, still having pain, pain is less Objective Vital Signs - Last 8 Hours Temp Pulse Resp BP Pulse Ox 07/10/19 07:25 98.4 F 85 14 116/74 95 Intake and Output 07/09/19 07/09/19 07/10/19 15:59 23:59 07:59 Intake Total 1370 / 2810 340 / 2810 1100 / 1100 Output Total 363 / 1333 950 / 1333 1290 / 1290 Balance 1007 / 1477 -610 / 1477 -190 / -190 Intake: IV Fluids 1100 / 2300 100 / 2300 1100 / 1100 Lactated Ringers 1,000 ML @ 100 1000 / 2000 1000 / 1000 mls/hr IVC .Q10H BETH Rx#: [id number] Zosyn 3.375 GM In 0.9 % Sodium 100 / 300 100 / 300 100 / 100 Chloride (Mini-Bag +) 100 ML @ 25 mls/hr IVPB Q8HR BETH Rx#: [id number] Oral 270 / 510 240 / 510 Output: Urine 350 / 1300 950 / 1300 1250 / 1250 Wound Drainage 40 / 40 Right Lower 5 / 15 20 / 20 Right Upper 20 / 20 Other: Meal Lunch Dinner Stool Size Moderate Stool Consistency loose soft Stool Color Brown - General physical appearance well developed, well nourished - Eyes PERRL - Abdomen Abdomen: Present: bowel sounds present, soft (Drains with serous material) - Incision Incision: Present: clean and dry - Labs Calcium panel 07/09/19 Range/Units 08:16 Phosphorus 3.0 (2.7-4.5) mg/dL Consult Discharge Plan - Plan Instructions: Open Cholecystectomy (DC) Additional Instructions: General Surgical Discharge Instructions 1. No pushing, pulling, or lifting greater than 15 lbs for 6 weeks. 2. You may remove your dressings and shower beginning today, but no tub baths, soaking, or swimming for 2 weeks. 3. No driving for two weeks unless otherwise specified and then you may resume driving when you are off narcotics and are safe to react in a car. 4. Take ibuprofen every 8 hours for discomfort. If this does not relieve discomfort, you may take the as needed Percocet. Eat a small snack with pain medication as this will help reduce the risk of nausea. Take narcotics as directed. Do not take more narcotics then directed and do not share your narcotics with any other person. Do not drink alcohol while on narcotics. You can take the Zofran/ondansetron if needed for nausea or with a dose of narcotics to prevent nausea. 5. Take stool softeners (Colace) or a water based laxative (Miralax) while taking narcotics. You may hold for loose stools. 6. Report any fevers greater than 100.5F, increase abdominal discomfort, drainage that looks like pus, increased redness or pain at the surgical site, or any vomiting. 7. Report any pain in the calves, shortness of breath, or rapid heartbeat. 8. Follow-up in the office as directed. 9. If you were prescribed antibiotics, do not stop them without talking to your provider. Referrals: Odilia Carney MD [Primary Care Provider] - Ana Vernon CNP [Advanced Practice Nurse] - 07/25/19 2:00 pm
[2019-07-10] MEDS: Famotidine 20 MG TABLET PO SCH ×2 (08:38→17:28)
[2019-07-10] MEDS: DILTIAZEM 180 MG PO SCH (08:38)
[2019-07-10] MEDS: *HR* OxyCODONE Immed Rel 5 MG TABLET PO PRN ×3 (08:40→23:35)
[2019-07-11 05:19] LABS: BUN/Creatinine Ratio 15 (6-26); Blood Urea Nitrogen 10 mg/dL (6-20); Calcium 8.6 mg/dL (8.6-10.3); Carbon Dioxide 28 mEq/L (23-29); Chloride 102 mEq/L (98-107); Glucose 101 mg/dL (70-105); Osmolality,Calculated 283 (280-300); Potassium 3.8 mEq/L (3.5-5.1); Sodium 137 mEq/L (136-145); eGFR For African Americans > 60 (> 60); eGFR For Non-African Americans > 60 (> 60)
[2019-07-11] MEDS: Piperacillin/Tazobactam 3.375 GM in 0.9 % Sodium Chloride Mini Bag 100 ML IVPB SCH ×3 (05:38→20:55)
[2019-07-11] MEDS: *HR* Enoxaparin 40 MG/0.4 ML SYRINGE SQ SCH (05:38)
[2019-07-11] MEDS: Ketorolac 15 MG/ML VIAL IVP SCH ×3 (05:38→17:43)
[2019-07-11] MEDS: *HR* OxyCODONE Immed Rel 5 MG TABLET PO PRN ×3 (05:49→18:06)
[2019-07-11] MEDS: Ringers Solution, Lactated 1,000 ML IVC SCH (07:15)
[2019-07-11] MEDS: Famotidine 20 MG TABLET PO SCH ×2 (07:43→17:43)
[2019-07-11] MEDS: DILTIAZEM 180 MG PO SCH (07:43)
--- NOTE | 2019-07-11 09:28 | Electrocardiograph Report ---
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
[2019-07-11] MEDS ORDERED: Mag Hydrox/Al Hydrox/Simeth 30 ML UDC PO PRN (13:22)
--- NOTE | 2019-07-11 14:11 | General Surgery Progress Note ---
Date of Encounter: 07/11/19 Time of Encounter: 07:45 - Assessment and Plan (1) Gangrene of gallbladder in cholecystitis Current Visit: Yes Status: Acute 48M pOD #3 s/p robotic converted to open cholecystectomy; patient doing well having bowel function; did have episode of chest pain, but CXR, EKG, and troponin do not indicate any cardiac event; after having flatus, patient states that his symptoms, including his chest pain, are resolved; adv to reg diet SLIV activity as tolerated IS usage cont with PO pain control remove dressing in AM possible d/c on 07/12 Subjective Patient reports: no new complaints, feels better, still having pain, pain is less, tolerating liquids well, voiding w/o difficulty, flatus, bowel movement, afebrile, other (report of chest pain at 0000) Objective Vital Signs - Last 8 Hours Temp Pulse Resp BP Pulse Ox 07/11/19 12:20 98.3 F 85 15 129/86 95 07/11/19 07:31 98.0 F 86 15 124/80 94 Intake and Output 07/10/19 07/11/19 07/11/19 23:59 07:59 15:59 Intake Total 1160 / 4360 1100 / 1542 442 / 1542 Output Total 726 / 2466 1260 / 1660 400 / 1660 Balance 434 / 1894 -160 / -118 42 / -118 Intake: IV Fluids 1100 / 3200 1100 / 1542 442 / 1542 Lactated Ringers 1,000 ML @ 100 1000 / 3000 1000 / 1342 342 / 1342 mls/hr IVC .Q10H BETH Rx#: [id number] Zosyn 3.375 GM In 0.9 % Sodium 100 / 100 100 / 200 100 / 200 Chloride (Mini-Bag +) 100 ML @ 25 mls/hr IVPB Q8H BETH Rx#: [id number] Oral 60 / 1160 0 / 0 Output: Urine 700 / 2400 1250 / 1650 400 / 1650 Wound Drainage Right Lower 5 / Right Upper 5 / 5 - General physical appearance no distress - Eyes PERRL, normal ocular movement - Respiratory normal expansion, normal respiratory effort - Cardiovascular Cardiovascular exam: Present: RRR - Abdomen Abdomen: Present: soft, tender (appropriately tender) - Incision Incision: Present: clean and dry, intact - Neurologic CN 2-12 grossly intact - Musculoskeletal normal posture - Psychiatric oriented to time, oriented to person, oriented to place - Labs 07/11/19 04:26 Diabetes panel 07/11/19 Range/Units 04:26 Sodium 137 (136-145) mEq/L Potassium 3.8 (3.5-5.1) mEq/L Chloride 102 (98-107) mEq/L Carbon Dioxide 28 (23-29) mEq/L BUN 10 (6-20) mg/dL Creatinine 0.68 L (0.70-1.30) mg/dL Glucose 101 (70-105) mg/dL Calcium 8.6 (8.6-10.3) mg/dL Calcium panel 07/11/19 Range/Units 04:26 Calcium 8.6 (8.6-10.3) mg/dL Pituitary panel 07/11/19 Range/Units 04:26 Sodium 137 (136-145) mEq/L Potassium 3.8 (3.5-5.1) mEq/L Chloride 102 (98-107) mEq/L Carbon Dioxide 28 (23-29) mEq/L BUN 10 (6-20) mg/dL Creatinine 0.68 L (0.70-1.30) mg/dL Glucose 101 (70-105) mg/dL Calcium 8.6 (8.6-10.3) mg/dL Adrenal panel 07/11/19 Range/Units 04:26 Sodium 137 (136-145) mEq/L Potassium 3.8 (3.5-5.1) mEq/L Chloride 102 (98-107) mEq/L Carbon Dioxide 28 (23-29) mEq/L BUN 10 (6-20) mg/dL Creatinine 0.68 L (0.70-1.30) mg/dL Glucose 101 (70-105) mg/dL Calcium 8.6 (8.6-10.3) mg/dL Consult Discharge Plan - Plan Instructions: Open Cholecystectomy (DC) Additional Instructions: General Surgical Discharge Instructions 1. No pushing, pulling, or lifting greater than 15 lbs for 6 weeks. 2. You may remove your dressings and shower beginning today, but no tub baths, soaking, or swimming for 2 weeks. 3. No driving for two weeks unless otherwise specified and then you may resume driving when you are off narcotics and are safe to react in a car. 4. Take ibuprofen every 8 hours for discomfort. If this does not relieve discomfort, you may take the as needed Percocet. Eat a small snack with pain medication as this will help reduce the risk of nausea. Take narcotics as directed. Do not take more narcotics then directed and do not share your narcotics with any other person. Do not drink alcohol while on narcotics. You can take the Zofran/ondansetron if needed for nausea or with a dose of narcotics to prevent nausea. 5. Take stool softeners (Colace) or a water based laxative (Miralax) while taking narcotics. You may hold for loose stools. 6. Report any fevers greater than 100.5F, increase abdominal discomfort, drainage that looks like pus, increased redness or pain at the surgical site, or any vomiting. 7. Report any pain in the calves, shortness of breath, or rapid heartbeat. 8. Follow-up in the office as directed. 9. If you were prescribed antibiotics, do not stop them without talking to your provider. Referrals: Odilia Carney MD [Primary Care Provider] - Ana Vernon CNP [Advanced Practice Nurse] - 07/25/19 2:00 pm
[2019-07-12] MEDS: Ketorolac 15 MG/ML VIAL IVP SCH ×2 (00:02→05:31)
[2019-07-12] MEDS: *HR* OxyCODONE Immed Rel 5 MG TABLET PO PRN ×2 (00:08→07:10)
[2019-07-12] MEDS: Piperacillin/Tazobactam 3.375 GM in 0.9 % Sodium Chloride Mini Bag 100 ML IVPB SCH (05:29)
[2019-07-12] MEDS: *HR* Enoxaparin 40 MG/0.4 ML SYRINGE SQ SCH (05:30)
[2019-07-12 07:54] VITALS: BP 127/81
[2019-07-12] MEDS: Famotidine 20 MG TABLET PO SCH (08:28)
[2019-07-12] MEDS: DILTIAZEM 180 MG PO SCH (08:29)
--- NOTE | 2019-07-12 08:43 | Discharge Summary ---
<Ana Vernon - Last Filed: 07/12/19 08:51> Orders not resulted at time of discharge: Pending orders 07/08/19 12:36 Surgical Pathology [PTH] Routine Date of Encounter: 07/12/19 Time of Encounter: 08:55 - Discharge Diagnosis (1) Gangrene of gallbladder in cholecystitis Priority: Primary Status: Resolved Comments: Status post robot converted to open cholecystectomy (2) Umbilical hernia Priority: Secondary Status: Acute Comments: s/p primary repair during cholecystectomy Qualifiers: Obstruction and gangrene presence: without obstruction or gangrene Qualified Code(s): K42.9 - Umbilical hernia without obstruction or gangrene (3) Essential hypertension with goal blood pressure less than 130/80 Priority: Secondary Status: Chronic (4) DVT prophylaxis Priority: Secondary Status: Acute General Surgery Exam Initial Vital Signs Temp Pulse Resp BP Pulse Ox 98.1 F 95 18 134/86 99 07/08/19 09:10 07/08/19 09:10 07/08/19 09:10 07/08/19 09:10 07/08/19 09:10 Vital Signs Temp Pulse Resp BP Pulse Ox 07/12/19 07:49 98.1 F 80 15 127/81 97 07/12/19 03:57 98.5 F 82 16 119/80 96 07/11/19 23:25 98.5 F 84 19 134/87 96 07/11/19 20:04 98.8 F 83 19 110/71 95 07/11/19 16:03 98.3 F 79 15 121/80 96 07/11/19 12:20 98.3 F 85 15 129/86 95 Intake and Output 07/11/19 07/12/19 07/12/19 23:59 07:59 15:59 Intake Total 100 / 1642 100 / 100 Output Total 920 / 920 Balance 100 / -18 -820 / -820 Intake: IV Fluids 100 / 1642 100 / 100 Zosyn 3.375 GM In 0.9 % Sodium 100 / 300 100 / 100 Chloride (Mini-Bag +) 100 ML @ 25 mls/hr IVPB Q8H BETH Rx#: [id number] Oral 0 / 0 Output: Urine 900 / 900 Wound Drainage 20 / 20 Right Lower 10 / 10 Right Upper 10 / 10 Other: # Voids 1 Weight 83.6 kg Patient Weight 07/12/19 23:59 Weight 83.6 kg VITAL SIGNS: Reviewed. See [facility] GENERAL: In no apparent distress. HEENT: Normocephalic, atraumatic, pupils are equal and reactive, extraocular motions intact, oropharynx is pink and moist, there is no neck adenopathy or JVD noted. CHEST/RESPIRATORY: The thorax is free from signs of trauma. Lung sounds: clear to auscultation, normal respiratory effort CARDIAC: Regular rate and rhythm. Normal S1 and S2, without murmurs, gallops, or rubs. VASCULAR: No Edema. 2+ peripheral pulses. ABDOMEN: soft, expected postoperative tenderness, active bowel sounds INCISION: Surgical incision is clean, dry, and intact. There are no signs of cellulitis or infection noted. WOUNDS/DRAINS: JPs w/SS output. Sites unremarkable. Remove prior to d/c MUSCULOSKELETAL: Good range of motion of all major joints. Extremities without clubbing, cyanosis or edema. NEUROLOGIC EXAM: Alert and oriented x 3. Speech normal. Follows commands. PSYCHIATRIC: Mood normal. SKIN: No rash or lesions. - Hospital Course Hospital course: Mr. Guillen is a 48 year old male who presented for an elective robotic cholecystectomy on 07/08/[address] Kaiser. He underwent a robotic or did to open cholecystectomy and primary closure of umbilical hernia on the same date with a postoperative diagnosis of gangrenous perforated cholecystitis. His pathology remains pending at this time. His postoperative course has been unremarkable. He is ambulating avoiding without difficulty, tolerating a diet without nausea or vomiting, vital signs stable, and he is afebrile. We will begin discharge planning to home with a follow-up in the office in approximately 2 weeks. His MYA drains are removed prior to discharge. - Time Spent with Patient Total time spent providing and/or coordinating discharge services: - Discharge Medications Prescriptions: New Docusate Sodium [Colace] 100 mg PO BID PRN #30 capsule PRN Reason: Contstipation Ibuprofen 800 mg PO Q8H PRN #42 tablet PRN Reason: Mild Pain OxyCODONE Immed Rel [Roxicodone 5 MG] 5 mg PO Q6HR PRN 7 Days #28 tablet PRN Reason: Severe Pain Ondansetron HCl [Zofran] 4 mg PO Q6H PRN 14 Days #30 tablet PRN Reason: Nausea Continued Diltiazem CD (24hr) [Cardizem CD] 180 mg PO DAILY Home Medications: Diltiazem CD (24hr) [Cardizem CD] 180 mg PO DAILY 07/08/19 [History] Docusate Sodium [Colace] 100 mg PO BID PRN #30 capsule 07/12/19 [Rx] Ibuprofen 800 mg PO Q8H PRN #42 tablet 07/12/19 [Rx] Ondansetron HCl [Zofran] 4 mg PO Q6H PRN 14 Days #30 tablet 07/12/19 [Rx] OxyCODONE Immed Rel [Roxicodone 5 MG] 5 mg PO Q6HR PRN 7 Days #28 tablet 07/12/19 [Rx] Allergies/Adverse Reactions: Allergy/AdvReac Type Severity Reaction Status Date / Time No Known Allergies Allergy Verified 07/08/19 19:01 Date of admission: 07/08/19 13:18 Primary care physician: Odilia Carney MD Discharging clinician: Kin Kaiser (Primitivo Vernon APRN-[facility]) Anticipated date of discharge: 07/12/19 Labs on day of discharge: Labs from last 24 hours 07/11/19 09:25 Troponin I < 0.03 - Impressions ITS Impressions Chest X-Ray 07/11/19 09:15 IMPRESSION: 1. Linear subsegmental atelectasis involving the lower lung zones. D/ / Sunday Hill MD / Sunday Hill MD Interpreting Provider: Sunday Hill MD - Patient Status Disposition: Home, Self-Care Condition: Good Functional capacity at discharge: independent ambulation Overall status at discharge: patient is progressing back to baseline - Discharge Instructions Instructions: Appendicitis (DC), Open Cholecystectomy (DC), Chronic Hyper tension (DC) Follow Up With: Odilia Carney MD [Primary Care Provider] - Kin Kaiser MD [Non-Partnered Physician] - 07/27/19 2:00 pm Additional Instructions: General Surgical Discharge Instructions 1. No pushing, pulling, or lifting greater than 15 lbs for 6 weeks. 2. You may remove your dressings and shower beginning today, but no tub baths, soaking, or swimming for 2 weeks. 3. No driving for one weeks unless otherwise specified and then you may resume driving when you are off narcotics and are safe to react in a car. 4. Apply ice to the abdomen 20 minutes every hour that your week. Take ib uprofen every 8 hours for discomfort. You may alternate the ibuprofen with 1000 mg acetaminophen so that you have medication every 4 hours. If this does not relieve discomfort, you may take the as needed oxycodone. Eat a small snack with pain medication as this will help reduce the risk of nausea. Take narcotics as directed. Do not take more narcotics then directed and do not share your narcotics with any other person. Do not drink alcohol while on narcotics. You can take the Zofran/ondansetron if needed for nausea or with a dose of narcotics to prevent nausea. 5. Take stool softeners (Colace) or a water based laxative (Miralax) while taking narcotics. You may hold for loose stools. 6. Report any fevers greater than 100.5F, increase abdominal discomfort, drainage that looks like pus, increased redness or pain at the surgical site, or any vomiting. 7. Report any pain in the calves, shortness of breath, or rapid heartbeat. 8. Follow-up in the office as directed. 9. If you were prescribed antibiotics, do not stop them without talking to your provider. - Diet and Activity Activity: increase activity as tolerated Diet: advance to your usual diet <Kin Kaiser - Last Filed: 07/13/19 12:32> Date of Encounter: 07/13/19 - Discharge Diagnosis (1) Gangrene of gallbladder in cholecystitis Status: Resolved General Surgery Exam Initial Vital Signs Temp Pulse Resp BP Pulse Ox 98.1 F 95 18 134/86 99 07/08/19 09:10 07/08/19 09:10 07/08/19 09:10 07/08/19 09:10 07/08/19 09:10 - Hospital Course Hospital course: Mr. Guillen is a 48 year old male - Time Spent with Patient Total time spent providing and/or coordinating discharge services: Date of admission: 07/08/19 13:18 Primary care physician: Odilia Carney MD - Impressions ITS Impressions Chest X-Ray 07/11/19 09:15 IMPRESSION: 1. Linear subsegmental atelectasis involving the lower lung zones. D/ / Sunday Hill MD / Sunday Hill MD Interpreting Provider: Sunday Hill MD - Attending Attestation patient seen and examined. i have reviewed all pertinent aspects of this case. I have discussed the case in detail with the RADIOLOGICAL TECHNICIAN. I agree with the above assessment and plan.
== END 2019-07-12 10:30 | disposition home or self-care (01) | DRG 415 ==
LOC: SAMDAY 08:20 → 3ANU 13:18
PROVIDERS: ADMIT Surgery; ATTEND Surgery